=== PATIENT | female | born 1950 | race Caucasian/White ===

== ENCOUNTER 2016-12-28 19:25 | Emergency (ER) | payer MEDICARE, OTHER ==
[2016-12-28] MEDS ORDERED: MOTRIN 600 MG PO STA (19:53)
[2016-12-28] MEDS ORDERED: Sodium Chloride 0.9% 1000 ML 1,000 ML IV STA ×2 (19:55→22:08)
--- NOTE | 2016-12-28 20:00 | ERPHSYRPT ---
- History of Present Illness Time Seen by Provider: 12/28/16 19:53 Source: patient Exam Limitations: no limitations Patient Subjective Stated Complaint: pt states she has had a fever since , 104.6 at home today, denies no cough, trouble urinating Triage Nursing Assessment: pt alert and oriented, answers questions approp. pt transfer from wheelchair to stretcher with assist of 1. slightly unsteady gait noted. respirations nonlabored with lungs cta. skin hot, flushed, and dry. Physician History: The patient is a 66-year-old female complaining of malaise and fever for 3 days. Her temperature at home was been as high as 103-104. She's had some achy fingers at times. She denies cough or sore throat. She did not get her influenza vaccination this year. Her past medical history is significant for hypertension, high cholesterol. Timing/Duration: day(s) (3) Fever Severity: moderate Fever Therapy FISHER DIVING: Acetaminophen Associated Symptoms: muscle aches, weakness, No cough, No nausea/vomiting, No shortness of breath, No sore throat Allergies/Adverse Reactions: Beta-Blockers (Beta-Adrenergic Bloc Allergy (Verified 12/28/16 19:49) Home Medications: Aspirin 81 mg PO DAILY 01/23/16 [History] Cyanocobalamin (Vitamin B-12) [Vitamin B-12] 0 mg PO DAILY 01/23/16 [History] Olmesartan/Hydrochlorothiazide [Benicar Hct 40-12.5 mg Tablet] 0.5 tab PO HS 09/01 [History] PANTOPRAZOLE 40 mg Tablet [Protonix 40MG Tablet] 40 mg PO DAILY 01/23/16 [ History] Sertraline HCl 50 mg [Zoloft 50 mg Tablet] 50 mg PO DAILY 01/23/16 [History] Verapamil HCl [Verapamil ER Pm] 200 mg PO DAILY 01/23/16 [History] Atorvastatin Calcium 10 mg PO HS 12/28/16 [History] Magnesium Oxide 400 mg [Mag-Ox 400] 400 mg PO DAILY 12/28/16 [History] Hx Tetanus, Diphtheria Vaccination/Date Given: Yes Hx Influenza Vaccination/Date Given: No Hx Pneumococcal Vaccination/Date Given: No Immunizations Up to Date: Yes - Review of Systems Constitutional: Fever Eyes: No Symptoms Ears, Nose, & Throat: No Symptoms Respiratory: No Cough, No Dyspnea Cardiac: No Chest Pain, No Edema, No Syncope Abdominal/Gastrointestinal: No Abdominal Pain, No Nausea, No Vomiting, No Diarrhea Genitourinary Symptoms: No Dysuria Musculoskeletal: No Back Pain, No Neck Pain Skin: No Rash Neurological: No Dizziness, No Focal Weakness, No Sensory Changes Psychological: No Symptoms Endocrine: No Symptoms Hematologic/Lymphatic: No Symptoms Immunological/Allergic: No Symptoms All Other Systems: Reviewed and Negative - Past Medical History Pertinent Past Medical History: Yes Cardiac History: Arrhythmia, High Cholesterol, Hypertension Psycho-Social History: Depression - Past Surgical History Past Surgical History: Yes Gastrointestinal: Cholecystectomy, Hernia Repair Female Surgical History: Tubal Ligation Other Surgical History: gastric bypass. heel spur. bilat carpal tunnel. bilat knee replace. Left shoulder - Social History Smoking Status: Never smoker Exposure to second hand smoke: Yes Drug Use: none Patient Lives Alone: No - Nursing Vital Signs Nursing Vital Signs: Initial Vital Signs Temperature 103.9 F 12/28/16 19:38 Pulse Rate 96 H 12/28/16 19:38 Respiratory Rate 20 12/28/16 19:38 Blood Pressure 117/60 12/28/16 19:38 O2 Sat by Pulse Oximetry 91 L 12/28/16 19:38 Pain Scale Pain Intensity 0 - Physical Exam General Appearance: no apparent distress, alert Eye Exam: PERRL/EOMI ENT Exam: pharyngeal erythema, tonsillar exudate Neck Exam: supple, full range of motion, No meningismus Respiratory Exam: normal breath sounds, lungs clear, no respiratory distress Cardiovascular/Chest Exam: normal heart sounds, regular rate/rhythm, No murmur, No edema Gastrointestinal/Abdominal Exam: soft, non tender, no distention Pelvic Exam: not done Rectal Exam: not done Extremity Exam: non-tender, normal range of motion, normal inspection, normal capillary refill Neurologic Exam: alert, oriented x 3, cooperative, 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, normal mood/affect, sensation nml, No motor deficits Skin Exam: normal color, warm, dry, No rash SpO2 Interpretation: normal SpO2: 91 Oxygen Delivery: Room Air - Radiology Exams Chest X-ray Interpretation: Interpreted by me, Negative Ordered Tests: Active Orders 24 hr Category Date Time Status IV Insertion STAT Care 12/28/16 19:53 Active Oxygen-ED Only NASAL CANNULA 2 lpm Care 12/28/16 19:53 Active CHEST 2 VIEWS (PA AND LAT) Stat Exams 12/28/16 19:54 Taken BLOOD CULTURE Stat Lab 12/28/16 20:10 Received BMP Stat Lab 12/28/16 20:00 Completed CBC W DIFF Stat Lab 12/28/16 20:00 Completed CULTURE, THROAT Stat Lab 12/28/16 20:00 Received CULTURE,URINE Stat Lab 12/28/16 23:27 Received Lactic Acid Stat Lab 12/28/16 20:00 Completed STREP SCREEN-BETA A Stat Lab 12/28/16 20:00 Completed UA W/ MICROSCOPIC Stat Lab 12/28/16 23:27 Completed Medication Summary Generic Name Dose Route Start Last Admin Trade Name Freq PRN Reason Stop Dose Admin Ceftriaxone Sodium/Dextrose 1 g in 50 mls @ 100 mls/hr 12/28/16 23:56 Rocephin 1 Gm-D5w 50 Ml Bag IV 12/29/16 00:25 STAT STA Discontinued Medications Generic Name Dose Route Start Last Admin Trade Name Freq PRN Reason Stop Dose Admin Sodium Chloride 1,000 mls @ 999 mls/hr 12/28/16 19:55 12/28/16 20:18 Sodium Chloride 0.9% 1000 Ml IV 12/28/16 20:55 999 mls/hr .Q1H1M STA Administration Sodium Chloride Confirm 12/28/16 20:16 Sodium Chloride 0.9% 1000 Ml Administered 12/28/16 20:17 Dose 1,000 mls @ ud .ROUTE .STK-MED ONE Sodium Chloride Confirm 12/28/16 21:59 Sodium Chloride 0.9% 1000 Ml Administered 12/28/16 22:00 Dose 1,000 mls @ ud .ROUTE .STK-MED ONE Sodium Chloride 1,000 mls @ 999 mls/hr 12/28/16 22:08 12/28/16 22:20 Sodium Chloride 0.9% 1000 Ml IV 12/28/16 23:08 999 mls/hr .Q1H1M STA Administration Ibuprofen 600 mg 12/28/16 19:53 12/28/16 20:17 Motrin 600 Mg PO 12/28/16 19:54 600 mg STAT STA Administration Ibuprofen Confirm 12/28/16 20:16 Motrin 600 Mg Administered 12/28/16 20:17 Dose 600 mg .ROUTE .STK-MED ONE Lab/Rad Data: Laboratory Result Diagrams 12/28/16 20:00 12/28/16 20:00 Laboratory Results 12/28/16 12/28/16 12/28/16 Range/Units 23:27 20:00 20:00 WBC (4.0-10.5) K/mm3 RBC (4.1-5.4) M/mm3 Hgb (12.0-16.0) gm/dl Hct (35-47) % MCV (78-100) fl MCH (26-32) pg MCHC (32-36) g/dl RDW (11.5-14.0) % Plt Count (150-450) K/mm3 MPV (6-9.5) fl Gran % (36.0-66.0) % Lymphocytes % (24.0-44.0) % Monocytes % (0.0-12.0) % Eosinophils % (0.00-5.0) % Basophils % (0.0-0.4) % Basophils # (0-0.4) Sodium (136-145) mEq/L Potassium (3.5-5.1) mEq/L Chloride (98-107) mEq/L Carbon Dioxide (21-32) mEq/L Anion Gap (5-15) MEQ/L BUN (9-20) mg/dL Creatinine (0.55-1.30) mg/dl Estimated GFR ML/MIN Glucose (70-110) MG/DL Lactic Acid 0.8 (0.4-2.0) Calcium (8.5-10.1) mg/dL Ur Collection Type CATH Urine Color DARK YELLOW (YELLOW) Urine Appearance SLIGHTLY CLOUDY (CLEAR) Urine pH 5.0 (5-6) Ur Specific [place] 1.020 (1.005-1.025) Urine Protein TRACE (Negative) Urine Ketones NEGATIVE (NEGATIVE) Urine Blood NEGATIVE (0-5) Faisal/ul Urine Nitrite NEGATIVE (NEGATIVE) Urine Bilirubin SMALL (NEGATIVE) Urine Urobilinogen 1 (0-1) mg/dL Ur Leukocyte Esterase TRACE (NEGATIVE) Urine Microscopic RBC 0-2 (0-2) /HPF Urine Microscopic WBC 2-5 (0-5) /HPF Ur Epithelial Cells MODERATE (FEW) /HPF Urine Bacteria MANY (NEGATIVE) /HPF Urine Mucus MODERATE (NEGATIVE) /HPF Urine Culture Reflexed YES (NO) Urine Glucose NEGATIVE (NEGATIVE) mg/dL Influenza Type A Ag NEGATIVE (NEGATIVE) Influenza Type B Ag NEGATIVE (NEGATIVE) RSV (PCR) NEGATIVE (Negative) Streptococcus Screen (Negative) Specimen Received 12/28/16 2330 12/28/16 12/28/16 12/28/16 Range/Units 20:00 20:00 20:00 WBC 8.7 (4.0-10.5) K/mm3 RBC 4.25 (4.1-5.4) M/mm3 Hgb 12.1 (12.0-16.0) gm/dl Hct 37.6 (35-47) % MCV 88.5 (78-100) fl MCH 28.5 (26-32) pg MCHC 32.2 (32-36) g/dl RDW 13.9 (11.5-14.0) % Plt Count 129 L (150-450) K/mm3 MPV 10.7 H (6-9.5) fl Gran % 75.4 H (36.0-66.0) % Lymphocytes % 13.2 L (24.0-44.0) % Monocytes % 10.5 (0.0-12.0) % Eosinophils % 0.6 (0.00-5.0) % Basophils % 0.3 (0.0-0.4) % Basophils # 0.03 (0-0.4) Sodium 138 (136-145) mEq/L Potassium 3.8 (3.5-5.1) mEq/L Chloride 102 (98-107) mEq/L Carbon Dioxide 28.8 (21-32) mEq/L Anion Gap 11.1 (5-15) MEQ/L BUN 29 H (9-20) mg/dL Creatinine 1.33 H (0.55-1.30) mg/dl Estimated GFR 42 ML/MIN Glucose 108 (70-110) MG/DL Lactic Acid (0.4-2.0) Calcium 9.4 (8.5-10.1) mg/dL Ur Collection Type Urine Color (YELLOW) Urine Appearance (CLEAR) Urine pH (5-6) Ur Specific [place] (1.005-1.025) Urine Protein (Negative) Urine Ketones (NEGATIVE) Urine Blood (0-5) Faisal/ul Urine Nitrite (NEGATIVE) Urine Bilirubin (NEGATIVE) Urine Urobilinogen (0-1) mg/dL Ur Leukocyte Esterase (NEGATIVE) Urine Microscopic RBC (0-2) /HPF Urine Microscopic WBC (0-5) /HPF Ur Epithelial Cells (FEW) /HPF Urine Bacteria (NEGATIVE) /HPF Urine Mucus (NEGATIVE) /HPF Urine Culture Reflexed (NO) Urine Glucose (NEGATIVE) mg/dL Influenza Type A Ag (NEGATIVE) Influenza Type B Ag (NEGATIVE) RSV (PCR) (Negative) Streptococcus Screen NEGATIVE (Negative) Specimen Received - Progress Progress: improved Counseled pt/family regarding: lab results, diagnosis, need for follow-up, rad results - Departure Time of Disposition: 23:59 Departure Disposition: Home Clinical Impression: UTI (urinary tract infection) Condition: Stable Critical Care Time: No Referrals: REECE SINGLETON [Primary Care Provider] - Additional Instructions: You had a fever has been caused by a UTI. You were given Rocephin 1 g and fluids by IV in the ER. Prescriptions: Ciprofloxacin [Cipro 500 MG] 1 tab PO BID #14 tablet
[2016-12-28] MEDS ORDERED: MOTRIN 600 MG ONE (20:16)
[2016-12-28] MEDS ORDERED: Sodium Chloride 0.9% 1000 ML 1,000 ML ONE ×2 (20:16→21:59)
[2016-12-28 20:18] LABS: BASOPHIL % 0.3 % (0.0-0.4); Eosinophil % 0.6 % (0.00-5.0); Granulocytes % 75.4 % (36.0-66.0); Lymphocytes % 13.2 % (24.0-44.0); Mean Cell Volume 88.5 fl (78-100); Mean Corpuscular Hemoglobin 28.5 pg (26-32); Mean Platelet Volume 10.7 fl (6-9.5); Monocytes % 10.5 % (0.0-12.0); Platelet Count 129 K/mm3 (150-450); Red Blood Count 4.25 M/mm3 (4.1-5.4); Red Cell Distribution Width 13.9 % (11.5-14.0); White Blood Count 8.7 K/mm3 (4.0-10.5)
[2016-12-28 20:44] LABS: ANION GAP 11.1 MEQ/L (5-15); Carbon Dioxide 28.8 mEq/L (21-32); Potassium 3.8 mEq/L (3.5-5.1)
[2016-12-28 23:38] LABS: Collection Type CATH; Glucose NEGATIVE (NEGATIVE); Leukocyte Esterase TRACE (NEGATIVE)
[2016-12-28 23:39] LABS: ADD URINE CULTURE? YES (NO); Bacteria MANY /HPF (NEGATIVE); Bilirubin SMALL (NEGATIVE); Blood NEGATIVE Ery/ul (0-5); COMPLETE URINE MICROSCOPIC? YES; Epithelial Cells MODERATE /HPF (FEW); Mucus MODERATE /HPF (NEGATIVE)
[2016-12-28] MEDS ORDERED: ROCEPHIN 1 Gm-D5w 50 ml Bag** 1 G/50 ML IVPB IV STA (23:56)
[2016-12-28] MEDS ORDERED: TYLENOL 325 MG PO STA (23:57)
[2016-12-29] MEDS ORDERED: Rocephin 1000 MG INJ IM ONE (00:33)
[2016-12-29] MEDS ORDERED: Rocephin 1000 MG INJ ONE (00:35)
[2016-12-29] MEDS ORDERED: TYLENOL 325 MG ONE (00:35)
[2016-12-29] MEDS ORDERED: XYLOCAINE 1% HCL 20 ML MDV ONE (00:38)
[2016-12-29 00:50] VITALS: BP 93/54; PULSE 72; O2SAT 93
--- NOTE | 2016-12-29 09:08 | XRAY ---
Indication: Fever. Comparison: January 23, 2016. AP/lateral chest again demonstrates normal heart and lungs with mild bony degenerative changes. No new/acute findings.
== END 2016-12-29 00:50 | disposition home or self-care (01) ==
LOC: ED 19:25
DX: N39.0 Urinary tract infection, site not specified (principal)
CPT/HCPCS: 96372; 99284; 36000; 96360; 96361; 87040; 81000; 36415; 87430; 87070; 85025; 80048; 87086; 87631; 71020; 83605; P9612; J0696; A9270-GY

== ENCOUNTER 2018-01-21 20:32 | Emergency (ER) | payer MEDICARE, OTHER ==
--- NOTE | 2018-01-21 20:47 | ERPHSYRPT ---
- History of Present Illness Time Seen by Provider: 01/21/18 20:45 Source: patient Exam Limitations: clinical condition Patient Subjective Stated Complaint: Fall/Chest pain Triage Nursing Assessment: Patient brought into ED per EMS for fall. Patient states she was walking outside and went down steps and slipped on wet leaves. Patient states she landed face forward hitting left side of face/head. Patient has laceration above eyebrow and purple bruise to underneath left eye. Purple bruise/raised area noted to right knee. Patient complains of constant stabbing pain around left side of chest area. Patient denies losing consciousness. Lungs noted to be clear a/p lois. No edema noted. S1-S2 heart tones audible. Physician History: PATIENT WITH A HISTORY OF HYPERTENSION, SLIPPED ON WET LEAVER FELL TO PAVEMENT STRUCK HER FACE COMPLAINS OF NASAL PAIN, ABRASIONS, LACERATION OVER LEFT EYEBROW AND LEFT RIB PAIN WORSE UPON INSPIRATION AND MOTION OF TORSO. HAS SLIGHT HEADACHE, DENIES LOSS OF CONSCIOUSNESS, NECK OR BACK PAIN, NUMBNESS, TINGLING OR WEAKNESS IN EXTREMITIES. Occurred: just prior to arrival Reason for Fall: slipped Injuries/Pain Location: head, face, chest Loss of Consciousness: no loss of consciousness Quality: sharpness, stabbing (IN LEFT RIBS) Severity of Pain-Max: moderate Modifying Factors: Improves With: cold therapy, movement ( AND INSPIRATION) Associated Symptoms (Fall): headache (FACIAL PAIN) Allergies/Adverse Reactions: Beta-Blockers (Beta-Adrenergic Bloc Allergy (Verified 01/21/18 20:45) Home Medications: Aspirin 81 mg PO DAILY 01/23/16 [History] Cyanocobalamin (Vitamin B-12) [Vitamin B-12] 0 mg PO DAILY 01/23/16 [History] PANTOPRAZOLE 40 mg Tablet [Protonix 40MG Tablet] 40 mg PO DAILY 01/23/16 [ History] Sertraline HCl 50 mg [Zoloft 50 mg Tablet] 100 mg PO DAILY 01/23/16 [History ] Verapamil HCl [Verapamil ER Pm] 200 mg PO DAILY 01/23/16 [History] Atorvastatin Calcium 10 mg PO HS 12/28/16 [History] Losartan Potassium 25 mg PO DAILY 01/21/18 [History] Hx Tetanus, Diphtheria Vaccination/Date Given: Yes Hx Influenza Vaccination/Date Given: No Hx Pneumococcal Vaccination/Date Given: Yes Immunizations Up to Date: Yes - Review of Systems Constitutional: No Fever, No Chills Eyes: Other (LEFT EYEBROW LACERATION) Ears, Nose, & Throat: Other (NASAL PAIN WITH ABRASION) Respiratory: Other (LEFT SIDED CHEST PAIN UPON INSPIRATION) Cardiac: Chest Pain Abdominal/Gastrointestinal: No Symptoms Genitourinary Symptoms: No Symptoms Musculoskeletal: No Symptoms - Past Medical History Pertinent Past Medical History: Yes Cardiac History: Arrhythmia, High Cholesterol, Hypertension Musculoskeletal History: No Pertinent History GI Medical History: No Pertinent History History: No Pertinent History Psycho-Social History: No Pertinent History Female Reproductive Disorders: No Pertinent History - Past Surgical History Past Surgical History: Yes Gastrointestinal: Cholecystectomy, Hernia Repair Female Surgical History: Tubal Ligation Other Surgical History: gastric bypass. heel spur. bilat carpal tunnel. bilat knee replace. Left shoulder - Social History Smoking Status: Never smoker Exposure to second hand smoke: No Drug Use: none Patient Lives Alone: No - Female History Hx Last Menstrual Period: menopausal Hx Now: No - Nursing Vital Signs Nursing Vital Signs: Initial Vital Signs Temperature 99.0 F 01/21/18 20:34 Pulse Rate 70 01/21/18 20:34 Respiratory Rate 18 01/21/18 20:34 Blood Pressure 165/103 01/21/18 20:34 O2 Sat by Pulse Oximetry 97 01/21/18 20:34 Pain Scale Pain Intensity 6 - [place] Coma Score Best Eye Response (Delfino): (4) open spontaneously Best Verbal Response (Delfino): (5) oriented Best Motor Response ([place]): (6) obeys commands [place] Total: 15 - Physical Exam General Appearance: no apparent distress Head Injury: lacerations ( THERE IS A 1.2CM LACERATION OVER LEFT EYEBROW, NO FACIAL CREPITUS), swelling, tenderness Eye Exam: PERRL/EOMI ENT Exam: airway nml, other (NASAL ABRASION, NO NASAL BRIDGE SWELLING , DEVIATION OR CREPITUS) Neck Exam: other (THERE IS NO POST CERVICAL SPINAL TENDERNESS) Respiratory/Chest Exam: chest tenderness (MARKED TENDERNESS OVER LEFT LATERAL RIBS INFERIOR TO AXILLA, 4TH TO 8TH RIBS) Cardiovascular Exam: normal heart sounds Gastrointestinal Exam: soft, normal bowel sounds Peripheral Pulses: carotid (R): 2+, carotid (L): 2+, femoral (R): 2+, femoral (L ): 2+, dorsalis-pedis (R): 2+, dorsalis-pedis (L): 2+ Neurologic Exam: alert, oriented x 3 Skin Exam: normal color SpO2 Interpretation: normal SpO2: 97 Oxygen Delivery: Room Air Procedures - Laceration/Wound Repair Left Face Wound Location: Left (EYEBROW LACERATION 1.2CM LACERATION) Wound Length (cm): 1.2 Wound's Depth, Shape: linear Wound Explored: clean Irrigated: Yes Hibiclens Prep: Yes Anesthesia: local Volume Anesthetic (ccs): 3 Wound Repaired With: sutures Suture Size/Type: 5-0 Number of Sutures: 5 Ordered Tests: Active Orders 24 hr Category Date Time Status CERVICAL SPINE WO CONTRAST [CT] Stat Exams 01/21/18 20:49 Taken CHEST 2 VIEWS (PA AND LAT) Stat Exams 01/21/18 20:50 Taken FACIAL BONES WO CONTRAST [CT] Stat Exams 01/21/18 20:49 Taken HEAD WITHOUT CONTRAST [CT] Stat Exams 01/21/18 20:49 Taken RIBS UNILATERAL Stat Exams 01/21/18 20:52 Taken BMP Stat Lab 01/21/18 21:08 Completed CBC W DIFF Stat Lab 01/21/18 21:08 Completed Medication Summary Generic Name Dose Route Start Last Admin Trade Name Freq PRN Reason Stop Dose Admin Sodium Chloride 1,000 mls @ 50 mls/hr 01/21/18 21:00 01/21/18 21:03 Sodium Chloride 0.9% 1000 Ml IV 02/20/18 20:59 50 mls/hr .Q20H LENIN Administration Discontinued Medications Generic Name Dose Route Start Last Admin Trade Name Freq PRN Reason Stop Dose Admin Morphine Sulfate 2 mg 01/21/18 20:53 01/21/18 20:59 Morphine Sulfate 2 Mg Inj IV 01/21/18 20:54 2 mg STAT ONE Administration Morphine Sulfate Confirm 01/21/18 20:57 Morphine Sulfate 2 Mg Inj Administered 01/21/18 20:58 Dose 2 mg .ROUTE .STK-MED ONE Ondansetron HCl 4 mg 01/21/18 20:53 01/21/18 21:00 Zofran 4 Mg/2 Ml Vial IV 01/21/18 20:54 4 mg STAT ONE Administration Ondansetron HCl Confirm 01/21/18 20:56 Zofran 4 Mg/2 Ml Vial Administered 01/21/18 20:57 Dose 4 mg .ROUTE .STK-MED ONE Lab/Rad Data: Laboratory Result Diagrams 01/21/18 21:08 01/21/18 21:08 Laboratory Results 01/21/18 01/21/18 Range/Units 21:08 21:08 WBC 7.1 (4.0-10.5) K/mm3 RBC 4.50 (4.1-5.4) M/mm3 Hgb 12.9 (12.0-16.0) gm/dl Hct 39.7 (35-47) % MCV 88.2 (78-100) fl MCH 28.7 (26-32) pg MCHC 32.5 (32-36) g/dl RDW 13.9 (11.5-14.0) % Plt Count 200 (150-450) K/mm3 MPV 10.4 H (6-9.5) fl Gran % 46.5 (36.0-66.0) % Eos # (Auto) 0.59 H (0-0.5) Absolute Lymphs (auto) 2.54 (1.0-4.6) Absolute Monos (auto) 0.66 (0.0-1.3) Lymphocytes % 35.6 (24.0-44.0) % Monocytes % 9.2 (0.0-12.0) % Eosinophils % 8.3 H (0.00-5.0) % Basophils % 0.4 (0.0-0.4) % Absolute Granulocytes 3.32 (1.4-6.9) Basophils # 0.03 (0-0.4) Sodium 140 (137-145) mmol/L Potassium 4.1 (3.5-5.1) mmol/L Chloride 107 (98-107) mmol/L Carbon Dioxide 25 (22-30) mmol/L Anion Gap 12.3 (5-15) MEQ/L BUN 26 H (7-17) mg/dL Creatinine 0.85 (0.52-1.04) mg/dL Estimated GFR > 60.0 ML/MIN Glucose 93 (74-106) mg/dL Calcium 10.4 H (8.4-10.2) mg/dL - Progress Progress Note: 01/21/18 21:09 IV NORMAL SALINE 50ML/HR, ZOFRAN 4MG, MORPHINE 2MG IV Counseled pt/family regarding: lab results, diagnosis, need for follow-up, rad results - Departure Time of Disposition: 23:00 Departure Disposition: Home Clinical Impression: FOREHEAD CONTUSION, LEFT EYEBROW LACERATION, LEFT 10TH RIB FRACTURE, CHEST WALL CONTUSION Condition: Stable Critical Care Time: No Referrals: REECE SINGLETON [Primary Care Provider] - Additional Instructions: FOLLOW HEAD INJURY INSTRUCTIONS. HAVE STITCHES REMOVED AT 8 DAYS. APPLY ICE OVER WOUND SWELLING EVERY 4 HOURS, 30 MINUTES FOR 48 HOURS. WATCH FOR SIGNS OF INFECTION, REDNESS, SWELLING OR DRAINAGE. TYLENOL #3 EVERY 6 HOURS NEEDED FOR PAIN. RETURN TO EMERGENCY FOR NAUSEA, EMESIS, PERSISTENT HEADACHE OR LETHARGY. Prescriptions: Codeine Phosphate/APAP #3 [Tylenol #3 Tablet] 1 tab PO Q6H PRN PRN #12 tablet PRN Reason: Pain
[2018-01-21] MEDS ORDERED: MORPHINE SULFATE 2 MG INJ IV ONE (20:53)
[2018-01-21] MEDS ORDERED: Zofran 4 MG/2 ML VIAL IV ONE (20:53)
[2018-01-21] MEDS ORDERED: Zofran 4 MG/2 ML VIAL ONE (20:56)
[2018-01-21] MEDS ORDERED: MORPHINE SULFATE 2 MG INJ ONE (20:57)
[2018-01-21] MEDS ORDERED: Sodium Chloride 0.9% 1000 ML 1,000 ML ONE (20:57)
[2018-01-21] MEDS ORDERED: Sodium Chloride 0.9% 1000 ML 1,000 ML IV SCH (21:00)
[2018-01-21 21:07] LABS: BASOPHIL % 0.4 % (0.0-0.4); Basophil (Absolute #) 0.03 (0-0.4); Eosinophil % 8.3 % (0.00-5.0); Eosinophil (Absolute #) 0.59 (0-0.5); Granulocyte Absolute (ANC) 3.32 (1.4-6.9); Granulocytes % 46.5 % (36.0-66.0); Hematocrit 39.7 % (35-47); Hemoglobin 12.9 gm/dl (12.0-16.0); Lymphocyte (Absolute #) 2.54 (1.0-4.6); Lymphocytes % 35.6 % (24.0-44.0); Mean Cell Volume 88.2 fl (78-100); Mean Corpuscular Hemoglobin 28.7 pg (26-32); Mean Corpuscular Hgb Concent. 32.5 g/dl (32-36); Mean Platelet Volume 10.4 fl (6-9.5); Monocyte (Absolute #) 0.66 (0.0-1.3); Monocytes % 9.2 % (0.0-12.0); Platelet Count 200 K/mm3 (150-450); Red Cell Distribution Width 13.9 % (11.5-14.0); White Blood Count 7.1 K/mm3 (4.0-10.5)
[2018-01-21 21:43] LABS: ANION GAP 12.3 MEQ/L (5-15); BLOOD UREA NITROGEN 26 mg/dL (7-17); CHLORIDE 107 mmol/L (98-107); Calcium 10.4 mg/dL (8.4-10.2); Carbon Dioxide 25 mmol/L (22-30); Creatinine 1 0.85 mg/dL (0.52-1.04); Glucose 93 mg/dL (74-106); Potassium 4.1 mmol/L (3.5-5.1); SODIUM 140 mmol/L (137-145)
[2018-01-21 23:00] VITALS: BP 125/70; PULSE 64; O2SAT 93
[2018-01-21] MEDS ORDERED: Tylenol #3 Tablet PO ONE (23:08)
[2018-01-21] MEDS ORDERED: Tylenol #3 Tablet ONE (23:11)
--- NOTE | 2018-01-22 08:38 | XRAY ---
Indication: Pain following fall. Multiple contiguous axial images obtained through the head without contrast. Comparison: None Normal appearing brain parenchyma, ventricles, and bony calvarium. Minimal mucosal thickening left maxillary sinus. Remaining visualized paranasal sinuses and mastoid air cells are clear. Impression: No acute intracranial abnormalities. Minimal paranasal sinus disease. CTDI 49.89
--- NOTE | 2018-01-22 08:40 | XRAY ---
Indication: Pain following fall. Multiple contiguous axial images obtained through the facial bones. Sagittal and coronal reformatted images obtained. Comparison: None Minimal left maxilla soft tissue swelling. No acute fracture, suspicious bony lesions, or radiopaque foreign body. Orbits including roof, juarez, and floors intact. Minimal mucosal thickening involving the posterior left maxillary sinus. Remaining paranasal sinuses and nasal passages are clear. Minimal nasal septal deviation. Visualized noncontrasted soft tissues unremarkable. Impression: Minimal left base soft tissue swelling. Negative acute fracture. Minimal left maxillary sinus disease. CT DI 59.47
--- NOTE | 2018-01-22 08:42 | XRAY ---
Indication: Pain following fall. Multiple contiguous axial images obtained through the cervical spine. Sagittal and coronal reformatted images obtained. Comparison: None Axial images negative for acute fracture, suspicious bony lesions, or spinal canal stenosis. Mild/moderate C4-T1 degenerative endplate spurring with tiny subcortical cysts and mild degenerative facet arthropathy. Sagittal and coronal reformatted images demonstrates normal alignment with C4-C7 disc space narrowing. No acute compression fracture, subluxation, or jumped facet. Normal appearing craniocervical junction. Visualized noncontrasted soft tissues demonstrates mild scattered carotid calcifications bilaterally. Lung apices clear. Impression: 1. Negative acute fracture/subluxation. 2. Multilevel degenerative changes. CT DI 51.11
--- NOTE | 2018-01-22 08:54 | XRAY ---
Indication: Pain following fall. Comparison: None 2 views of the left ribs demonstrates moderate left AC degenerative arthropathy, moderate multilevel degenerative spondylosis, and upper abdomen suture material/surgical clips. No other bony, articular, or soft tissue abnormalities.
--- NOTE | 2018-01-22 08:54 | XRAY ---
Indication: Pain following fall. Comparison: December 28, 2016. PA/lateral chest again demonstrates normal heart and lungs with bony degenerative changes. New upper abdomen suture material/surgical clips.
== END 2018-01-21 23:18 | disposition home or self-care (01) ==
LOC: ED 20:32
DX: S01.112A Laceration without foreign body of left eyelid and periocular area, initial encounter (principal); S00.83XA Contusion of other part of head, initial encounter; S22.32XA Fracture of one rib, left side, initial encounter for closed fracture; R51 Headache; R07.9 Chest pain, unspecified; S20.212A Contusion of left front wall of thorax, initial encounter; W10.8XXA Fall (on) (from) other stairs and steps, initial encounter; J34.89 Other specified disorders of nose and nasal sinuses; Z79.899 Other long term (current) drug therapy
CPT/HCPCS: 12011; 36415; 70450; 70486; 71046; 71100; 72125; 80048; 85025; 96360; 96361; 96374; 96375; 99284; J2270; J2405; L0172; A9270-GY

== ENCOUNTER 2019-10-25 17:35 | Emergency (ER) | payer MEDICARE, OTHER ==
[2019-10-25] MEDS ORDERED: BABY ASPIRIN 81 MG CHEW PO ONE (18:07)
[2019-10-25] MEDS ORDERED: NITRO-BID 2% UD PACKETS TOP ONE (18:07)
[2019-10-25] MEDS ORDERED: MORPHINE SULFATE 2 MG INJ IV ONE (18:07)
[2019-10-25] MEDS ORDERED: Sodium Chloride 0.9% 1000 ML 1,000 ML IV SCH (18:15)
--- NOTE | 2019-10-25 18:31 | ERPHSYRPT ---
<GEORGES,JULIEN - Last Filed: 10/25/19 18:39> - History of Present Illness Time Seen by Provider: 10/25/19 18:30 Historian: patient Exam Limitations: no limitations Patient Subjective Stated Complaint: "I have chest pain and i almost passed out. the pain has been there for two days. It comes and goes." Triage Nursing Assessment: Pt presented alert et oriented x3 answering questions appropriately. Pt ambulated without complications. Pt reported intermittent chest pain onset two days prior. Pt reported a near syncopal episode prior to coming. Pt reported experiencing cold sweats and nausea without vomiting. Pupils 3mm reactive. Neck supple without JVD. Heart tones irregular/clear. Symmetrical chest expansion. Lungs clear with adequate airflow. radial pulses equal bilateral. Abdomen obese non-tender with bowel sounds present in all quadrants. No noted dependent edema. Oral mucosa pink/moist. Physician History: "I have chest pain and i almost passed out. the pain has been there for two days. It comes and goes." Timing/Duration: yesterday Activities at Onset: activity Quality: tightness Location: substernal Chest Pain Radiation: no radiation Severity of Pain-Max: mild Severity of Pain-Current: mild Modifying Factors: Improves With: nothing Associated Symptoms: shortness of breath Allergies/Adverse Reactions: Beta-Blockers (Beta-Adrenergic Bloc Allergy (Verified 10/25/19 17:56) Home Medications: Aspirin 81 mg PO DAILY 01/23/16 [History] Cyanocobalamin (Vitamin B-12) [Vitamin B-12] 1 tab PO DAILY 01/23/16 [History] PANTOPRAZOLE 40 mg Tablet [Protonix 40MG Tablet] 40 mg PO DAILY 01/23/16 [History] Sertraline HCl 50 mg [Zoloft 50 mg Tablet] 100 mg PO DAILY 01/23/16 [History] Verapamil HCl [Verapamil ER Pm] 200 mg PO DAILY 01/23/16 [History] Atorvastatin Calcium 10 mg PO HS 12/28/16 [History] Losartan Potassium 25 mg PO DAILY 01/21/18 [History] Nitroglycerin 0.4 mg Tablet [Nitrostat 0.4 MG Tablet] 1 tab SL DAILY PRN 10/25/19 [History] Hx Tetanus, Diphtheria Vaccination/Date Given: Yes Hx Influenza Vaccination/Date Given: Yes Hx Pneumococcal Vaccination/Date Given: Yes Travel Risk - International Travel Have you traveled outside of the country in past 3 weeks: No - Coronavirus Screening Are you exhibiting any of the following symptoms?: No Symptoms: Shortness of Breath Close contact with a COVID-19 positive Pt in past 14-21 Days: No - Review of Systems Constitutional: No Fever, No Chills Eyes: No Symptoms Ears, Nose, & Throat: No Symptoms Respiratory: No Cough, No Dyspnea Cardiac: Chest Pain, No Edema, No Syncope Abdominal/Gastrointestinal: No Abdominal Pain, No Nausea, No Vomiting, No Diarrhea Genitourinary Symptoms: No Dysuria Musculoskeletal: No Back Pain, No Neck Pain Skin: No Rash Neurological: No Dizziness, No Focal Weakness, No Sensory Changes Psychological: No Symptoms Endocrine: No Symptoms All Other Systems: Reviewed and Negative - Past Medical History Pertinent Past Medical History: Yes Cardiac History: Arrhythmia, High Cholesterol, Hypertension Musculoskeletal History: No Pertinent History GI Medical History: No Pertinent History History: No Pertinent History Psycho-Social History: No Pertinent History Female Reproductive Disorders: No Pertinent History - Past Surgical History Past Surgical History: Yes Gastrointestinal: Cholecystectomy, Hernia Repair Female Surgical History: Tubal Ligation Other Surgical History: gastric bypass. heel spur. bilat carpal tunnel. bilat knee replace. Left shoulder - Social History Smoking Status: Never smoker Exposure to second hand smoke: No Drug Use: none Patient Lives Alone: No - Physical Exam General Appearance: no apparent distress, alert Eye Exam: PERRL/EOMI, eyes nml inspection Ears, Nose, Throat Exam: normal ENT inspection, moist mucous membranes Neck Exam: normal inspection, non-tender, supple, full range of motion Respiratory Exam: normal breath sounds, lungs clear, No respiratory distress Cardiovascular Exam: regular rate/rhythm, normal heart sounds Gastrointestinal/Abdomen Exam: soft, No tenderness, No mass Back Exam: normal inspection, No CVA tenderness, No vertebral tenderness Extremity Exam: normal inspection, normal range of motion Neurologic Exam: alert, oriented x 3, cooperative, normal mood/affect, sensation nml, No motor deficits Skin Exam: normal color, warm, dry SpO2: 96 - Course Nursing assessment & vital signs reviewed: Yes EKG Interpreted by Me: Sinus Rhythm - Radiology Exams Chest X-ray Interpretation: Reviewed by me - Departure Clinical Impression: Unstable angina Condition: Good Referrals: REECE SINGLETON [Primary Care Provider] - Instructions: Angina (DC) <ANTIONETTE PITTS - Last Filed: 10/25/19 20:03> - History of Present Illness Quality: tightness Location: substernal, central Chest Pain Radiation: abdomen Severity of Pain-Max: moderate Severity of Pain-Current: moderate Modifying Factors: Improves With: nitroglycerin Associated Symptoms: nausea, heartburn, dizziness Prior Chest Pain/Cardiac Workup: cardiac cath, recently seen/treated Nitro Today/Relief: 0.4 mg x 4, provided by ED (nitro paste with relief and now recurring lower chest ) Aspirin Treatment Today: 325 mg x 1, provided by ED - Nursing Vital Signs Nursing Vital Signs: Initial Vital Signs Temperature 98.1 F 10/25/19 17:36 Pulse Rate 78 10/25/19 17:36 Respiratory Rate 18 10/25/19 17:36 Blood Pressure 175/94 10/25/19 17:36 O2 Sat by Pulse Oximetry 96 10/25/19 17:36 Pain Scale Pain Intensity 6 - Course Nursing assessment & vital signs reviewed: Yes EKG Interpreted by Me: Sinus Rhythm, NORMAL AXIS, Non-specific ST Changes, Other (apcs) - Radiology Exams Chest X-ray Interpretation: Reviewed by me, No Pneumonia Ordered Tests: Active Orders 24 hr Category Date Time Status Oxygen-ED Only Nasal Cannula 2 lpm Care 10/25/19 18:07 Active CHEST 1 VIEW (PORTABLE) Stat Exams 10/25/19 18:07 Completed CBC W DIFF Stat Lab 10/25/19 18:26 Completed CMP Stat Lab 10/25/19 18:26 Completed NT PRO BNP Stat Lab 10/25/19 18:26 Completed TROPONIN Q3H Lab 10/25/19 18:26 Completed TROPONIN Q3H Lab 10/25/19 21:15 Ordered TROPONIN Q3H Lab 10/26/19 00:15 Ordered TROPONIN Q3H Lab 10/26/19 03:15 Ordered TROPONIN Q3H Lab 10/26/19 06:15 Ordered Medication Summary Generic Name Dose Route Start Last Admin Trade Name Freq PRN Reason Stop Dose Admin Sodium Chloride 1,000 mls @ 50 mls/hr 10/25/19 18:15 10/25/19 18:38 Sodium Chloride 0.9% 1000 Ml IV 11/24/19 18:14 50 mls/hr .Q20H LENIN Administration Discontinued Medications Generic Name Dose Route Start Last Admin Trade Name Freq PRN Reason Stop Dose Admin Aspirin 81 mg 10/25/19 18:07 10/25/19 18:37 Baby Aspirin 81 Mg Chew PO 10/25/19 18:08 81 mg STAT ONE Administration Enoxaparin Sodium 80 mg 10/25/19 19:57 Enoxaparin Sodium SQ 10/25/19 19:58 1XONLY ONE Hydromorphone HCl 0.5 mg 10/25/19 19:46 10/25/19 19:50 Hydromorphone 1 Mg/Ml Ampule IV 10/25/19 19:47 0.5 mg STAT ONE Administration Hydromorphone HCl Confirm 10/25/19 19:49 Hydromorphone 1 Mg/Ml Ampule Administered 10/25/19 19:50 Dose 1 mg .ROUTE .STK-MED ONE Morphine Sulfate 2 mg 10/25/19 18:07 10/25/19 18:38 Morphine Sulfate 2 Mg Inj IV 10/25/19 18:08 2 mg STAT ONE Administration Morphine Sulfate Confirm 10/25/19 18:35 Morphine Sulfate 2 Mg Inj Administered 10/25/19 18:36 Dose 2 mg .ROUTE .STK-MED ONE Nitroglycerin 1 gm 10/25/19 18:07 10/25/19 18:37 Nitro-Bid 2% Ud Packets TOP 10/25/19 18:08 1 gm STAT ONE Administration Nitroglycerin Confirm 10/25/19 18:35 Nitro-Bid 2% Ud Packets Administered 10/25/19 18:36 Dose 1 gm .ROUTE .STK-MED ONE Ondansetron HCl 4 mg 10/25/19 19:45 10/25/19 19:50 Zofran 4 Mg/2 Ml Vial IV 10/25/19 19:46 4 mg STAT ONE Administration Ondansetron HCl Confirm 10/25/19 19:49 Zofran 4 Mg/2 Ml Vial Administered 10/25/19 19:50 Dose 4 mg .ROUTE .STK-MED ONE Lab/Rad Data: Laboratory Result Diagrams 10/25/19 18:26 10/25/19 18:26 Laboratory Results 10/25/19 10/25/19 10/25/19 Range/Units 18:26 18:26 18:26 WBC 6.7 (4.0-10.5) K/mm3 RBC 4.54 (4.1-5.4) M/mm3 Hgb 12.8 (12.0-16.0) gm/dl Hct 41.3 (35-47) % MCV 91.0 (78-100) fl MCH 28.2 (26-32) pg MCHC 31.0 L (32-36) g/dl RDW 14.2 H (11.5-14.0) % Plt Count 193 (150-450) K/mm3 MPV 10.8 (7.5-11.0) fl Gran % 58.5 (36.0-66.0) % Eos # (Auto) 0.44 (0-0.5) Absolute Lymphs (auto) 1.79 (1.0-4.6) Absolute Monos (auto) 0.52 (0.0-1.3) Lymphocytes % 26.8 (24.0-44.0) % Monocytes % 7.8 (0.0-12.0) % Eosinophils % 6.6 H (0.00-5.0) % Basophils % 0.3 (0.0-0.4) % Absolute Granulocytes 3.92 (1.4-6.9) Basophils # 0.02 (0-0.4) Sodium 141 (137-145) mmol/L Potassium 4.1 (3.5-5.1) mmol/L Chloride 108 H (98-107) mmol/L Carbon Dioxide 27 (22-30) mmol/L Anion Gap 10.2 (5-15) MEQ/L BUN 27 H (7-17) mg/dL Creatinine 1.02 (0.52-1.04) mg/dL Estimated GFR 56.9 ML/MIN Glucose 80 (74-106) mg/dL Calcium 10.1 (8.4-10.2) mg/dL Total Bilirubin 0.50 (0.2-1.3) mg/dL AST 23 (14-36) U/L ALT 13 (0-35) U/L Alkaline Phosphatase 76 (38-126) U/L Troponin I < 0.012 (0.000-0.034) ng/mL NT-Pro-B Natriuret Pep 149 (0-900) pg/mL Serum Total Protein 7.4 (6.3-8.2) g/dL Albumin 4.1 (3.5-5.0) g/dL - Progress Progress: re-examined Air Movement: good Progress Note: 10/25/19 18:49 pt received in handoff at change of shift from Dr. Millan after discussion of pending labs and current Hx and introduction to pt. Her CP has now resolved. 10/25/19 19:24 now lower chest / epigastrium but less left CP 10/25/19 19:[address] 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 Blood Culture(s) Obtained: No Antibiotics given: No Counseled pt/family regarding: lab results, diagnosis, need for follow-up, rad results - Departure Departure Disposition: Transfer Critical Care Time: Yes Critical Care Time(excluding separately billable procedures): Critical 30-74 mins (unstable angina Tx nitro and requiring intensive monitoring and cardiology transfer)
[2019-10-25 18:32] LABS: Absolute Neutrophil Ct (ANC) 3.92 (1.4-6.9); BASOPHIL % 0.3 % (0.0-0.4); Basophil (Absolute #) 0.02 (0-0.4); Eosinophil % 6.6 % (0.00-5.0); Eosinophil (Absolute #) 0.44 (0-0.5); Hematocrit 41.3 % (35-47); Hemoglobin 12.8 gm/dl (12.0-16.0); Lymphocyte (Absolute #) 1.79 (1.0-4.6); Lymphocytes % 26.8 % (24.0-44.0); Mean Corpuscular Hemoglobin 28.2 pg (26-32); Mean Platelet Volume 10.8 fl (7.5-11.0); Monocyte (Absolute #) 0.52 (0.0-1.3); Monocytes % 7.8 % (0.0-12.0); Neutrophil % 58.5 % (36.0-66.0); Platelet Count 193 K/mm3 (150-450); Red Blood Count 4.54 M/mm3 (4.1-5.4); Red Cell Distribution Width 14.2 % (11.5-14.0); White Blood Count 6.7 K/mm3 (4.0-10.5)
[2019-10-25] MEDS ORDERED: Sodium Chloride 0.9% 1000 ML 1,000 ML ONE (18:35)
[2019-10-25] MEDS ORDERED: NITRO-BID 2% UD PACKETS ONE (18:35)
[2019-10-25] MEDS ORDERED: MORPHINE SULFATE 2 MG INJ ONE (18:35)
[2019-10-25 18:54] LABS: ALBUMIN 4.1 g/dL (3.5-5.0); ANION GAP 10.2 MEQ/L (5-15); BILIRUBIN,TOTAL 0.5 mg/dL (0.2-1.3); Calcium 10.1 mg/dL (8.4-10.2); Creatinine 1 1.02 mg/dL (0.52-1.04); Potassium 4.1 mmol/L (3.5-5.1); Total Protein 7.4 g/dL (6.3-8.2)
[2019-10-25] MEDS ORDERED: Zofran 4 MG/2 ML VIAL IV ONE (19:45)
[2019-10-25] MEDS ORDERED: Hydromorphone 1 mg/ml Ampule IV ONE (19:46)
[2019-10-25] MEDS ORDERED: Zofran 4 MG/2 ML VIAL ONE (19:49)
[2019-10-25] MEDS ORDERED: Hydromorphone 1 mg/ml Ampule ONE (19:49)
--- NOTE | 2019-10-25 19:50 | XRAY ---
Indication: Chest pain 2 days. Comparison: January 21, 2018. Portable apical lordotic chest remains clear again with incidental chronic right hemidiaphragm elevation. Heart is not enlarged for AP portable technique. Bony thorax intact again with mild degenerative changes. Impression: Nonacute chest with chronic features.
[2019-10-25] MEDS ORDERED: ENOXAPARIN SODIUM SQ ONE ×2 (19:57→20:05)
[2019-10-25 21:15] VITALS: BP 143/68
[2019-10-25 21:50] VITALS: PULSE 63; O2SAT 98
== END 2019-10-25 21:50 | disposition short-term general hospital (02) ==
LOC: ED 17:35
DX: I20.0 Unstable angina (principal)
CPT/HCPCS: 36000; 36415; 71045; 80053; 83880; 84484; 85025; 96360; 96361; 96372; 96374; 96375; 96376; 99285; 99291; J1170; J1650; J2270; J2405; A9270-GY

== ENCOUNTER 2021-12-06 07:12 | Day surgery (SDC) | payer MEDICARE, OTHER ==
[2021-12-06] MEDS ORDERED: NON-FORMULARY ITEM OP ONE (07:30)
[2021-12-06] MEDS ORDERED: BETADINE 5% OPHTHALMIC 30 ML OP ONE (07:30)
[2021-12-06] MEDS ORDERED: TETRACAINE 0.5% STERI-UNIT SOL OP ONE ×2 (07:30)
[2021-12-06] MEDS ORDERED: Ak-Dilate OPHTHALMIC*** 1.065 ML, Cyclogyl 1% OPHTH SOL 1.065 ML, GATIFLOXACIN 0.5% OPH... OP ONE ×4 (07:30)
[2021-12-06] MEDS ORDERED: Lactated Ringers 1,000 ML IV SCH (07:30)
[2021-12-06] MEDS ORDERED: cefUROXime sodium 0.005 GM in Sodium Chloride Flush 30 ML*** 0.5 ML IJ ONE (07:30)
[2021-12-06] MEDS ORDERED: Lactated Ringers 1,000 ML IV ONE (07:50)
[2021-12-06 09:16] LABS: PROTIME 10.6 SECONDS (9.4-12.5)
[2021-12-06] MEDS ORDERED: DIPRIVAN 200 MG/20 ML IV ONE ×2 (10:35→10:44)
[2021-12-06] MEDS ORDERED: Zofran 4 MG/2 ML VIAL IV PRN (11:00)
[2021-12-06] MEDS ORDERED: ACETAZOLAMIDE 250 MG TABLET PO ONE (11:00)
[2021-12-06 11:15] VITALS: O2SAT 95
[2021-12-06 11:20] VITALS: BP 145/92; PULSE 55
[2021-12-06] MEDS ORDERED: LIDOCAINE HCL 1% 50 MG/5 ML VL PF IJ ONE (14:57)
[2021-12-06] MEDS ORDERED: Epinephrine Preservative Free 1 MG/ML IJ ONE (14:57)
== END 2021-12-06 11:30 | disposition home or self-care (01) ==
LOC: SDC 07:12
PROVIDERS: ATTEND Ophthalmology
DX: H25.812 Combined forms of age-related cataract, left eye (principal); I10 Essential (primary) hypertension; Z79.01 Long term (current) use of anticoagulants
CPT/HCPCS: 36415; 85610; 93005; 99100; C1780; J0171; J2001; J2704; A9270-GY

== ENCOUNTER 2022-01-03 06:55 | Day surgery (SDC) | payer MEDICARE, OTHER ==
[2022-01-03] MEDS ORDERED: TETRACAINE 0.5% STERI-UNIT SOL OP ONE ×2 (07:00)
[2022-01-03] MEDS ORDERED: Lactated Ringers 1,000 ML IV SCH (07:00)
[2022-01-03] MEDS ORDERED: cefUROXime sodium 0.005 GM in Sodium Chloride Flush 30 ML*** 0.5 ML IJ ONE (07:00)
[2022-01-03] MEDS ORDERED: Ak-Dilate OPHTHALMIC*** 1.065 ML, Cyclogyl 1% OPHTH SOL 1.065 ML, GATIFLOXACIN 0.5% OPH... OP ONE ×4 (07:00)
[2022-01-03] MEDS ORDERED: NON-FORMULARY ITEM OP ONE (07:00)
[2022-01-03] MEDS ORDERED: BETADINE 5% OPHTHALMIC 30 ML OP ONE (07:00)
[2022-01-03] MEDS ORDERED: Lactated Ringers 1,000 ML IV ONE (07:27)
[2022-01-03] MEDS ORDERED: LIDOCAINE HCL 1% 50 MG/5 ML VL PF IJ ONE (09:00)
[2022-01-03] MEDS ORDERED: ACETAZOLAMIDE 250 MG TABLET PO ONE (09:00)
[2022-01-03] MEDS ORDERED: Zofran 4 MG/2 ML VIAL IV PRN (09:00)
[2022-01-03] MEDS ORDERED: Epinephrine Preservative Free 1 MG/ML IJ ONE (09:00)
[2022-01-03] MEDS ORDERED: Xylocaine-Mpf 2% 5 Ml Vial ONE (09:44)
[2022-01-03] MEDS ORDERED: DIPRIVAN 200 MG/20 ML IV ONE (09:44)
[2022-01-03] MEDS ORDERED: SUBLIMAZE 100 MCG/2 ML ONE (09:45)
[2022-01-03] MEDS ORDERED: Versed 2 MG/2 ML Injection ONE (09:45)
[2022-01-03 10:34] VITALS: BP 139/68; PULSE 61; O2SAT 97
== END 2022-01-03 10:45 | disposition home or self-care (01) ==
LOC: SDC 06:55
PROVIDERS: ATTEND Ophthalmology
DX: H25.811 Combined forms of age-related cataract, right eye (principal)
CPT/HCPCS: 99100; C1780; J0171; J2001; J2250; J2704; J3010; A9270-GY

== ENCOUNTER 2025-01-21 17:36 | Inpatient (IN) | payer MEDICARE, OTHER ==
--- NOTE | 2025-01-21 17:55 | ERPHSYRPT ---
- History of Present Illness Physician History: Abnormal lab studies, patient was sent by her primary care doctor for evaluation as her labs are abnormal, she states that her calcium was very high, she has not had any kind of symptoms she was scheduled for a follow-up in clinic and wanted to have labs drawn before she got there, she denied having any muscle aches or muscle cramping, she is short of breath but she is always chronically short of breath, she is able to ambulate but slowly, PMH : CKD, HTN, CHF Allergies/Adverse Reactions: Beta-Blockers (Beta-Adrenergic Bloc Allergy (Verified 01/21/25 17:47) Home Medications: Cyanocobalamin (Vitamin B-12) [Vitamin B-12] 5,000 mg PO DAILY 01/23/16 [History] PANTOPRAZOLE 40 mg Tablet [Protonix 40MG Tablet] 40 mg PO DAILY 01/23/16 [History] Sertraline HCl 50 mg [Zoloft 50 mg Tablet] 100 mg PO DAILY 01/23/16 [History] Verapamil HCl [Verapamil ER Pm] 240 mg PO DAILY 01/23/16 [History] Losartan Potassium 100 mg PO DAILY 01/21/18 [History] Isosorbide Mononitrate 60 mg [Imdur 60MG] 60 mg PO DAILY 11/22/21 [History] Acetaminophen [Tylenol Arthritis] 2 tab PO DAILY 01/21/25 [History] Apixaban [Eliquis] 5 mg PO BID 01/21/25 [History] Nitroglycerin 1 tablet PO Q5MIN PRN MR X 3 PRN 01/21/25 [History] Spironolactone 25 mg [Aldactone 25 MG] 25 mg PO DAILY 01/21/25 [History] Hx Tetanus, Diphtheria Vaccination/Date Given: Yes Hx Influenza Vaccination/Date Given: Yes Hx Pneumococcal Vaccination/Date Given: Yes Travel Risk - Emerging Infectious Disease Are you exhibiting symptoms associated with any current EIDs: No - Past Medical History Neurological History: Stroke Cardiac History: Angina, Congestive Heart Failure, Hypertension, Other Endocrine Medical History: Other Other Medical History: ANXIETY - Past Surgical History Past Surgical History: Yes Neuro Surgical History: No Pertinent History Cardiac: Other Respiratory: No Pertinent History Gastrointestinal: Cholecystectomy, Hernia Repair Genitourinary: No Pertinent History Musculoskeletal: Other Female Surgical History: Section, Tubal Ligation, Other Other Surgical History: gastric bypass. heel spur. bilat carpal tunnel. bilat knee replace. Left shoulder Significant Family History: no pertinent family hx - Social History Smoking Status: Never smoker Exposure to second hand smoke: No Drug Use: none - Social Determinants of Health Will the patient participate in the screening: Yes Do you worry about a steady place to live?: No In the past 12 months,have you had to go without utilities?: No Transportation Issues: No Has anyone in your support network made you feel unsafe?: No Have you or anyone in your house had to go w/o enough food: No - Nursing Vital Signs Nursing Vital Signs: Initial Vital Signs Temperature 98 F 01/21/25 17:36 Pulse Rate 89 01/21/25 17:36 Respiratory Rate 14 01/21/25 17:36 Blood Pressure 137/72 01/21/25 17:36 O2 Sat by Pulse Oximetry 98 01/21/25 17:36 Pain Scale Pain Intensity 0 - Physical Exam General Appearance: no apparent distress, alert, obese Eye Exam: PERRL/EOMI, eyes nml inspection Ears, Nose, Throat Exam: normal ENT inspection, TMs normal, pharynx normal, moist mucous membranes Neck Exam: normal inspection, non-tender, supple, full range of motion Respiratory Exam: normal breath sounds, lungs clear, No respiratory distress Cardiovascular Exam: regular rate/rhythm, normal heart sounds, normal peripheral pulses Gastrointestinal/Abdomen Exam: soft, normal bowel sounds, No tenderness, No mass Back Exam: normal inspection, normal range of motion, No CVA tenderness, No vertebral tenderness Extremity Exam: normal inspection, normal range of motion, pelvis stable, limited range of motion (right wrist) Neurologic Exam: alert, oriented x 3, cooperative, normal mood/affect, nml cerebellar function, nml station & gait, sensation nml, No motor deficits Skin Exam: normal color, warm, dry, No rash Lymphatic Exam: No adenopathy Comments: 01/21/25 17:54 Normal muscle strength, no tetany, no cramping Ordered Tests: Active Orders 24 hr Category Date Time Status IV Insertion STAT Care 01/21/25 17:50 Active CHEST 1 VIEW (PORTABLE) Stat Exams 01/21/25 17:51 Taken CBC W DIFF Stat Lab 01/21/25 17:50 Completed CMP Stat Lab 01/21/25 17:50 Completed MAGNESIUM Stat Lab 01/21/25 17:50 Completed Transfer Order Routine Transfer 01/21/25 Ordered Lab/Rad Data: Laboratory Result Diagrams 01/21/25 17:50 01/21/25 17:50 Laboratory Results 01/21/25 01/21/25 Range/Units 17:50 17:50 WBC 7.5 (3.98-10.04) x10^3/uL RBC 4.76 (3.93-5.22) x10^6/uL Hgb 13.3 (11.2-15.7) g/dL Hct 42.5 (34.1-44.9) % MCV 89.3 (79.4-94.8) fL MCH 27.9 (25.6-32.2) pg MCHC 31.3 L (32.2-35.5) g/dL RDW 14.6 H (11.7-14.4) % Plt Count 220 (182-369) x10^3/uL MPV 10.5 (9.4-12.3) fL Gran % 61.4 (34.0-71.1) % Immature Gran % (Auto) 0.4 (0.001-0.429) % Nucleat RBC Rel Count 0.0 (0.00-0.2) % Eos # (Auto) 0.21 (0.04-0.36) x10^3/uL Immature Gran # (Auto) 0.03 (0.001-0.031) x10^3u/L Absolute Lymphs (auto) 2.00 (1.18-3.74) x10^3/uL Absolute Monos (auto) 0.59 (0.24-0.86) x10^3/uL Absolute Nucleated RBC 0.00 (0.00-0.012) x10^3u/L Lymphocytes % 26.8 (19.3-51.7) % Monocytes % 7.9 (4.7-12.5) % Eosinophils % 2.8 (0.7-5.8) % Basophils % 0.7 (0.1-1.2) % Absolute Granulocytes 4.57 (1.56-6.13) x10^3/uL Basophils # 0.05 (0.01-0.08) x10^3/uL Sodium 138 (135-145) mmol/L Potassium 4.0 (3.5-5.1) mmol/L Chloride 105 (98-107) mmol/L Carbon Dioxide 27 (22-30) mmol/L Anion Gap 10.1 (5-15) MEQ/L BUN 23 H (7-17) mg/dL Creatinine 1.15 H (0.52-1.04) mg/dL Estimated GFR 49.7 ML/MIN Glucose 105 (74-106) mg/dL Calcium 13.8 H* (8.4-10.2) mg/dL Magnesium 1.8 (1.6-2.3) mg/dL Total Bilirubin 0.50 (0.2-1.3) mg/dL AST 23 (14-36) U/L ALT 13 (0-35) U/L Alkaline Phosphatase 70 (38-126) U/L Serum Total Protein 7.0 (6.3-8.2) g/dL Albumin 4.0 (3.5-5.0) g/dL - Progress Progress: unchanged Progress Note: 01/21/25 19:13 Discussed lab results, consult to hospitalist, admit - Departure Departure Disposition: Observation Clinical Impression: Hypercalcemia Condition: Stable Critical Care Time: No Referrals: REECE SINGLETON [Primary Care Provider, [facility]] - Follow up/PCP as directed
[2025-01-21 18:09] LABS: BASOPHIL % 0.7 % (0.1-1.2); Basophil (Absolute #) 0.05 x10^3/uL (0.01-0.08); Eosinophil (Absolute #) 0.21 x10^3/uL (0.04-0.36); Hematocrit 42.5 % (34.1-44.9); Hemoglobin 13.3 g/dL (11.2-15.7); IMMATURE GRAN # 0.03 x10^3u/L (0.001-0.031); IMMATURE GRAN % 0.4 % (0.001-0.429); Lymphocyte (Absolute #) 2.00 x10^3/uL (1.18-3.74); Mean Corpuscular Hemoglobin 27.9 pg (25.6-32.2); Mean Corpuscular Hgb Concent. 31.3 g/dL (32.2-35.5); Monocyte (Absolute #) 0.59 x10^3/uL (0.24-0.86); NUCLEATED RBC # 0.00 x10^3u/L (0.00-0.012); NUCLEATED RBC % 0.0 % (0.00-0.2); Platelet Count 220 x10^3/uL (182-369); Red Blood Count 4.76 x10^6/uL (3.93-5.22); White Blood Count 7.5 x10^3/uL (3.98-10.04)
[2025-01-21 18:24] LABS: Carbon Dioxide 27.0 mmol/L (22-30); Creatinine 1 1.15 mg/dL (0.52-1.04); EST GLOMERULAR FILTRATION RATE 49.7 ML/MIN; Glucose 105.0 mg/dL (74-106); Potassium 4.0 mmol/L (3.5-5.1); SGOT/AST 23.0 U/L (14-36); SGPT/ALT 13.0 U/L (0-35); Total Protein 7.0 g/dL (6.3-8.2)
[2025-01-21 18:32] LABS: Calcium 13.8 mg/dL (8.4-10.2)
[2025-01-21] MEDS ORDERED: Nitrostat 0.4 MG Tablet SL PRN (20:11)
[2025-01-21] MEDS ORDERED: Zofran 4 MG/2 ML VIAL IV PRN (20:12)
--- NOTE | 2025-01-21 20:27 | PCM.HP ---
History of Present Illness - Chief Complaint Chief Complaint: hypercalcemia Date: 01/21/25 History of Present Illness: is a 74 year old female with a history of HTN, CHF, CKD, and prior gastric bypass (in 2016) who presented to the ED as a referral from her PCP for bnormal lab studies, specifically hypercalcemia. She has not had any kind of symptoms and denies muscle spasms or cramps. The patient states that she recently did have an elevated calcium once. She previously had consumed a significant amount of dairy but has cut out ice cream and cut back on cheese (at this time she has approximately 1 serving of cheese and one glass of milk daily). She also had been on a vitamin D supplement in the past but stopped taking that. She says that she has had about 20 pounds of unexpected weight loss over the last 5 months. She denies hematemesis, melena, rectal bleeding, worsening cough, or hemoptysis. She reports chronic dyspnea which is unchanged. - Review of Systems Constitutional: Weight Loss, No Fever, No Chills, No Fatigue, No Lethargy, No Malaise, No Night Sweats, No Weakness Eyes: No Symptoms Ears, Nose, & Throat: No Symptoms Respiratory: Short Of Breath, No Cough, No Orthopnea, No Stridor, No Wheezing Cardiac: No Symptoms Abdominal/Gastrointestinal: No Symptoms Genitourinary Symptoms: No Symptoms Musculoskeletal: No Symptoms Skin: No Symptoms Neurological: No Symptoms Psychological: No Symptoms Endocrine: No Symptoms Hematologic/Lymphatic: No Symptoms Immunological/Allergic: No Symptoms All Other Systems: Reviewed and Negative Medications & Allergies Home Medications: Home Medication List Cyanocobalamin (Vitamin B-12) [Vitamin B-12] 5,000 mg PO DAILY 01/23/16 [History Confirmed 01/21/25] PANTOPRAZOLE 40 mg Tablet [Protonix 40MG Tablet] 40 mg PO DAILY 01/23/16 [History Confirmed 01/21/25] Sertraline HCl 50 mg [Zoloft 50 mg Tablet] 100 mg PO DAILY 01/23/16 [History Confirmed 01/21/25] Verapamil HCl [Verapamil ER Pm] 240 mg PO DAILY 01/23/16 [History Confirmed 01/21/25] Losartan Potassium 100 mg PO DAILY 01/21/18 [History Confirmed 01/21/25] Isosorbide Mononitrate 60 mg [Imdur 60MG] 60 mg PO DAILY 11/22/21 [History Confirmed 01/21/25] Acetaminophen [Tylenol Arthritis] 2 tab PO DAILY 01/21/25 [History Confirmed 01/21/25] Apixaban [Eliquis] 5 mg PO BID 01/21/25 [History Confirmed 01/21/25] Nitroglycerin 1 tablet PO Q5MIN PRN MR X 3 PRN 01/21/25 [History Confirmed 01/21/25] Spironolactone 25 mg [Aldactone 25 MG] 25 mg PO DAILY 01/21/25 [History Confirmed 01/21/25] Allergies/Adverse Reactions: Allergies Allergy/AdvReac Type Severity Reaction Status Date / Time Beta-Blockers Allergy Verified 01/21/25 17:47 (Beta-Adrenergic Bloc - Past Medical History Past Medical History: Yes Neurological History: Stroke ENT History: Cataracts Cardiac History: Angina, Congestive Heart Failure, Hypertension, Other Respiratory History: No Pertinent History Endocrine Medical History: Other Musculoskelatal History: Osteoarthritis, Osteoporosis GI Medical History: No Pertinent History History: No Pertinent History Pyscho-Social History: Anxiety Reproductive Disorders: No Pertinent History Comment: ANXIETY - Past Surgical History Past Surgical History: Yes Neuro Surgical History: No Pertinent History Cardiac History: Other Respiratory Surgery: No Pertinent History GI Surgical History: Cholecystectomy, Hernia Repair Genitourinary Surgical Hx: No Pertinent History Musculskeletal Surgical Hx: Other Female Surgical History: Section, Tubal Ligation, Other Other Surgical History: gastric bypass. heel spur. bilat carpal tunnel. bilat knee replace. Left shoulder Significant Family History: no pertinent family hx - Social History Smoking Status: Never smoker Exposure to second hand smoke: No Alcohol: None Drug Use: none - Social Determinants of Health Will the patient participate in the screening: Yes Do you worry about a steady place to live?: No Do you have any problems with any of the following?: No known problems In the past 12 months,have you had to go without utilities?: No Have you or anyone in your house had to go without enough: No Transportation Issues: No Has anyone in your support network made you feel unsafe?: No Does the patient want assistance with any of the above?: No - Physical Exam Vital Signs: Vital Signs - 24 hr Temp Pulse Resp BP BP Pulse Ox 01/21/25 19:00 89 134/71 94 L 01/21/25 18:30 121/79 93 L 01/21/25 18:00 86 14 119/61 92 L 01/21/25 17:36 98 F 89 14 137/72 98 General Appearance: no apparent distress, alert, No anxiety, No lethargy, No cachetic Neurologic Exam: alert, oriented x 3, cooperative, 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, normal mood/affect, nml cerebellar function, sensation nml, No motor deficits, No sensory deficit Eye Exam: PERRL/EOMI, eyes nml inspection, No scleral icterus, No pale conjunctivae, No photophobia Ears, Nose, Throat Exam: normal ENT inspection Neck Exam: normal inspection, non-tender, supple, full range of motion, No meningismus Respiratory Exam: normal breath sounds, lungs clear, airway intact, No chest te nderness, No respiratory distress Cardiovascular Exam: regular rate/rhythm, normal heart sounds, No murmur, No friction rub, No gallop Gastrointestinal/Abdomen Exam: soft, normal bowel sounds, No tenderness, No distention, No mass, No guarding Back Exam: normal range of motion Extremity Exam: normal inspection, normal range of motion, No pedal edema, No swelling Skin Exam: normal color, No rash, No petechiae, No jaundice, No abrasion, No cyanosis Results - Labs Lab/Micro Results: Lab Results-Last 24 Hours 01/21/25 01/21/25 Range/Units 17:50 17:50 WBC 7.5 (3.98-10.04) x10^3/uL RBC 4.76 (3.93-5.22) x10^6/uL Hgb 13.3 (11.2-15.7) g/dL Hct 42.5 (34.1-44.9) % MCV 89.3 (79.4-94.8) fL MCH 27.9 (25.6-32.2) pg MCHC 31.3 L (32.2-35.5) g/dL RDW 14.6 H (11.7-14.4) % Plt Count 220 (182-369) x10^3/uL MPV 10.5 (9.4-12.3) fL Gran % 61.4 (34.0-71.1) % Immature Gran % (Auto) 0.4 (0.001-0.429) % Nucleat RBC Rel Count 0.0 (0.00-0.2) % Eos # (Auto) 0.21 (0.04-0.36) x10^3/uL Immature Gran # (Auto) 0.03 (0.001-0.031) x10^3u/L Absolute Lymphs (auto) 2.00 (1.18-3.74) x10^3/uL Absolute Monos (auto) 0.59 (0.24-0.86) x10^3/uL Absolute Nucleated RBC 0.00 (0.00-0.012) x10^3u/L Lymphocytes % 26.8 (19.3-51.7) % Monocytes % 7.9 (4.7-12.5) % Eosinophils % 2.8 (0.7-5.8) % Basophils % 0.7 (0.1-1.2) % Absolute Granulocytes 4.57 (1.56-6.13) x10^3/uL Basophils # 0.05 (0.01-0.08) x10^3/uL Sodium 138 (135-145) mmol/L Potassium 4.0 (3.5-5.1) mmol/L Chloride 105 (98-107) mmol/L Carbon Dioxide 27 (22-30) mmol/L Anion Gap 10.1 (5-15) MEQ/L BUN 23 H (7-17) mg/dL Creatinine 1.15 H (0.52-1.04) mg/dL Estimated GFR 49.7 ML/MIN Glucose 105 (74-106) mg/dL Calcium 13.8 H* (8.4-10.2) mg/dL Magnesium 1.8 (1.6-2.3) mg/dL Total Bilirubin 0.50 (0.2-1.3) mg/dL AST 23 (14-36) U/L ALT 13 (0-35) U/L Alkaline Phosphatase 70 (38-126) U/L Serum Total Protein 7.0 (6.3-8.2) g/dL Albumin 4.0 (3.5-5.0) g/dL - Radiology Impressions Radiology Exams & Impressions: Radiology Procedures Category Date Time Status CHEST 1 VIEW (PORTABLE) Stat Exams 01/21/25 17:51 Taken Assessment/Plan (1) Hypercalcemia Current Visit: Yes Status: Acute Assessment & Plan: Recurrent finding. 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 Will check PTH, TSH, vitamin D level. Will give gentle hydration. Monitor on telemetry. In morning if creatinine is stable, can order and obtain CT chest/albumin/pelvis with contrast to assess for occult malignancy (CXR read is pending). Patient reports 20 pounds unintentional weight loss. Can request nephrology consultation in the morning when available. Code(s): E83.52 - HYPERCALCEMIA (2) CKD (chronic kidney disease) Current Visit: Yes Status: Acute Assessment & Plan: Monitor renal function. Code(s): N18.9 - CHRONIC KIDNEY DISEASE, UNSPECIFIED (3) HTN (hypertension) Current Visit: No Status: Chronic Assessment & Plan: Follow BP on home regimen. Code(s): I10 - ESSENTIAL (PRIMARY) HYPERTENSION (4) CHF (congestive heart failure) Current Visit: No Status: Acute Assessment & Plan: Monitor volume status. Gentle IV fluids. Code(s): I50.9 - HEART FAILURE, UNSPECIFIED Telemedicine Encounter - Telemedicine Encounter Telemedicine Encounter: "The entirety of this encounter was performed via Telemedicine" This visit was performed using real-time audio and video connection between my location and thepatients locationwith the assistance of a surrogateat the patients location. Written or verbal consent was obtained from the patient/guardian to perform this visit [facility] technology. Any patient questions regarding the telemedicine interaction were answered. Please note that this admission required 46 minutes to complete.
[2025-01-21] MEDS ORDERED: TYLENOL EXTRA STRENGTH 500 MG PO PRN (20:32)
[2025-01-21] MEDS: ELIQUIS 2.5 MG TABLET PO SCH (21:34)
[2025-01-21] MEDS ORDERED: NON-FORMULARY ITEM (Apixaban [Eliquis] 5 MG Tablet) PO SCH (22:00)
[2025-01-22 05:26] LABS: BASOPHIL % 0.4 % (0.1-1.2); Basophil (Absolute #) 0.03 x10^3/uL (0.01-0.08); Eosinophil (Absolute #) 0.28 x10^3/uL (0.04-0.36); Hematocrit 41.1 % (34.1-44.9); Hemoglobin 12.5 g/dL (11.2-15.7); IMMATURE GRAN # 0.03 x10^3u/L (0.001-0.031); IMMATURE GRAN % 0.4 % (0.001-0.429); Lymphocyte (Absolute #) 1.65 x10^3/uL (1.18-3.74); Mean Corpuscular Hemoglobin 27.4 pg (25.6-32.2); Mean Corpuscular Hgb Concent. 30.4 g/dL (32.2-35.5); Monocyte (Absolute #) 0.41 x10^3/uL (0.24-0.86); NUCLEATED RBC # 0.00 x10^3u/L (0.00-0.012); NUCLEATED RBC % 0.0 % (0.00-0.2); Platelet Count 185 x10^3/uL (182-369); Red Blood Count 4.57 x10^6/uL (3.93-5.22); White Blood Count 6.8 x10^3/uL (3.98-10.04)
[2025-01-22 07:03] LABS: Carbon Dioxide 25.0 mmol/L (22-30); Creatinine 1 1.03 mg/dL (0.52-1.04); EST GLOMERULAR FILTRATION RATE 56.7 ML/MIN; Glucose 90.0 mg/dL (74-106); Potassium 4.0 mmol/L (3.5-5.1); SGOT/AST 19.0 U/L (14-36); SGPT/ALT 10.0 U/L (0-35); Total Protein 6.0 g/dL (6.3-8.2)
[2025-01-22 07:08] LABS: Calcium 12.9 mg/dL (8.4-10.2)
--- NOTE | 2025-01-22 08:52 | XRAY ---
Indication: Short of breath. Comparison: October 01, 2024 Portable chest inflated and is now clear. Heart and mediastinal structures within normal limits. Bony thorax intact again with osteopenia and mild degenerative changes. Impression: Nonacute chest with chronic bony findings.
--- NOTE | 2025-01-22 09:19 | XRAY ---
Indication: Elevated calcium levels. Multiple contiguous axial images obtained through the abdomen and pelvis prior to and following 80 cc Isovue 370 contrast. Comparison: CT abdomen only September 29, 2016 Lung bases now demonstrates mild diffuse pulmonary fibrosis/scarring and minimal dependent atelectasis. No infiltrate or effusion. Heart not enlarged again with scattered coronary calcifications and mitral valve calcifications. Noncontrasted images again demonstrates tiny hepatic/splenic calcified granulomas. Left kidney demonstrates 2 nonobstructing punctate calculus, previously only 1. No new pathologic visceral calcifications/calculi. Noncontrasted stomach and bowel loops appear nonobstructed again with colonic diverticulosis. Again previous gastric bypass surgery and cholecystectomy. No free fluid/air. Postcontrast images demonstrates normal visceral enhancement and renal excretion. A few small bilateral renal cysts, largest left midpole appearing exophytic measuring 1.4 cm. No suspicious solid renal mass, hydronephrosis, or hydroureter. Remaining liver, pancreas, spleen, adrenal glands, kidneys, ureters, bladder, and uterus are unremarkable. Again mild scattered aortoiliac calcifications. No AAA or pathologic retroperitoneal lymphadenopathy. Osseous structures intact again with osteopenia, minimal levoscoliosis, mild multilevel thoracolumbar degenerative spondylosis, grade 1 L4 anterolisthesis, and mild degenerative changes both hips. Impression: 1. New scattered pulmonary fibrosis/scarring. 2. Again chronic findings including mitral valve calcifications, colonic diverticulosis, nonobstructing left renal microcalculi, bilateral renal cysts, arteriosclerotic disease, chronic bony findings, and old granulomatous disease. 3. Remaining CT abdomen/pelvis with and without contrast exam continues to be negative.
[2025-01-22] MEDS ORDERED: NON-FORMULARY ITEM (Acetaminophen [Tylenol Arthritis] 650 MG Tablet.Er) PO SCH (10:00)
[2025-01-22] MEDS ORDERED: Aldactone 25 MG PO SCH (10:00)
[2025-01-22] MEDS ORDERED: VERAPAMIL HCL 200 MG PO SCH (10:00)
[2025-01-22] MEDS ORDERED: NON-FORMULARY ITEM (Losartan Potassium [Losartan Potassium] 25 MG Tablet) PO SCH (10:00)
[2025-01-22] MEDS: Imdur 60MG PO SCH (10:55)
[2025-01-22] MEDS: ISOPTIN SR PO SCH (10:55)
[2025-01-22] MEDS: ZOLOFT 50 MG TABLET PO SCH (10:56)
[2025-01-22] MEDS: Protonix 40MG Tablet PO SCH (10:57)
[2025-01-22] MEDS: Vitamin B-12 500 MCG PO SCH (10:57)
[2025-01-22] MEDS: Lasix 20 MG/2 ML IV SCH (10:58)
[2025-01-22] MEDS: Cozaar 50 MG PO SCH (10:58)
--- NOTE | 2025-01-22 12:00 | PCM.NOTE ---
Date and Time: 01/22/25 1200 Subjective Assessment: is a 74 year old female with a history of HTN, CHF, CKD, and prior gastric bypass (in 2016) who presented to the ED on 01/21/25 as a referral from her PCP for abnormal lab studies, specifically hypercalcemia. She has not had any kind of symptoms and denies muscle spasms or cramps. The patient states that she recently did have an elevated calcium once. She previously had consumed a significant amount of dairy but has cut out ice cream and cut back on cheese (at this time she has approximately 1 serving of cheese and one glass of milk daily). She also had been on a vitamin D supplement in the past but stopped taking that. She says that she has had about 20 pounds of unexpected weight loss over the last 5 months. She denies hematemesis, melena, rectal bleeding, worsening cough, or hemoptysis. She reports chronic dyspnea which is unchanged. 01/22/25 The patient is resting comfortably in bed and denies any current symptoms. Her calcium level this morning was 12.9 mg/dL, and a repeat level is pending. A CT scan of the abdomen and pelvis revealed no acute abnormalities, and chest X-ray findings were also unremarkable for any acute process, though they did show evidence of chronic pulmonary fibrosis and scarring. The patient does not currently follow with a vp human resources, and an appointment will be arranged with Dr. León in [place] per her request. Spironolactone has been held, as this medication may be contributing to her elevated calcium level. The patient reports that this medication was prescribed by her clinical nurse occupational medicine, Dr. Pr. Aragon. Lasix 20 mg twice daily has been initiated to assist in lowering her calcium level, and intravenous fluids are being continued for the same purpose. Her vitamin D level is significantly low; however, vitamin D supplementation is being deferred until calcium levels normalize. She was counseled on incorporating vitamin Drich foods into her diet and on the importance of safe sun exposure to help improve her levels naturally. Parathyroid hormone (PTH) results are pending, and thyroid-stimulating hormone (TSH) is normal. If her calcium level decreases to within the low-normal range and she remains clinically stable, the patient will likely be discharged tomorrow. She continues to rest comfortably and denies any new complaints at this time. - Review of Systems Constitutional: No Fever, No Chills Eyes: No Symptoms Ears, Nose, & Throat: No Symptoms Respiratory: No Cough, No Short Of Breath Cardiac: No Chest Pain, No Edema, No Syncope Abdominal/Gastrointestinal: No Abdominal Pain, No Nausea, No Vomiting, No Diarrhea Genitourinary Symptoms: No Dysuria Musculoskeletal: No Back Pain, No Neck Pain Skin: No Rash Neurological: No Dizziness, No Focal Weakness, No Sensory Changes Psychological: No Symptoms Endocrine: No Symptoms Hematologic/Lymphatic: No Symptoms Immunological/Allergic: No Symptoms Objective Exam General Appearance: no apparent distress, alert, obese Neurologic Exam: alert, oriented x 3, cooperative, normal mood/affect, nml cerebellar function, sensation nml, No motor deficits Skin Exam: normal color, warm, dry Eye Exam: PERRL, EOMI, eyes nml inspection Ears, Nose, Throat Exam: normal ENT inspection, pharynx normal, moist mucous membranes Neck Exam: normal inspection, non-tender, supple, full range of motion Respiratory Exam: normal breath sounds, lungs clear, No respiratory distress Cardiovascular Exam: regular rate/rhythm, normal heart sounds Gastrointestinal/Abdomen Exam: soft, No tenderness, No mass Extremity Exam: normal inspection, normal range of motion Back Exam: normal inspection, normal range of motion, No CVA tenderness, No vertebral tenderness Pelvic Exam: deferred Rectal Exam: deferred Objective Data Vital Signs: Vital Signs - 24 hr Temp Pulse Resp BP BP BP Pulse Ox 01/22/25 11:52 97.3 F 93 H 16 156/86 96 01/22/25 08:07 16 01/22/25 07:57 97.3 F 101 H 16 129/75 95 01/22/25 04:00 97.2 F 101 H 18 141/68 95 01/22/25 00:00 16 01/21/25 23:44 97.3 F 84 16 148/70 96 01/21/25 19:56 97.0 F 96 H 18 135/80 96 01/21/25 19:00 89 134/71 94 L 01/21/25 18:30 121/79 93 L 01/21/25 18:00 86 14 119/61 92 L 01/21/25 17:36 98 F 89 14 137/72 98 Pain Assessment - Last Documented Pain Intensity 0 Intake and Output: Intake & Output 11/07/1101/21/25 01/22/25 01/23/25 11:59 11:59 11:59 11:59 Intake Total 1396 Output Total 200 Balance 1196 Weight 69.7 kg Lab Results: Lab Results-Last 24 Hours 01/21/25 01/21/25 01/22/25 Range/Units 17:50 17:50 04:44 WBC 7.5 (3.98-10.04) x10^3/uL RBC 4.76 (3.93-5.22) x10^6/uL Hgb 13.3 (11.2-15.7) g/dL Hct 42.5 (34.1-44.9) % MCV 89.3 (79.4-94.8) fL MCH 27.9 (25.6-32.2) pg MCHC 31.3 L (32.2-35.5) g/dL RDW 14.6 H (11.7-14.4) % Plt Count 220 (182-369) x10^3/uL MPV 10.5 (9.4-12.3) fL Gran % 61.4 (34.0-71.1) % Immature Gran % (Auto) 0.4 (0.001-0.429) % Nucleat RBC Rel Count 0.0 (0.00-0.2) % Eos # (Auto) 0.21 (0.04-0.36) x10^3/uL Immature Gran # (Auto) 0.03 (0.001-0.031) x10^3u/L Absolute Lymphs (auto) 2.00 (1.18-3.74) x10^3/uL Absolute Monos (auto) 0.59 (0.24-0.86) x10^3/uL Absolute Nucleated RBC 0.00 (0.00-0.012) x10^3u/L Lymphocytes % 26.8 (19.3-51.7) % Monocytes % 7.9 (4.7-12.5) % Eosinophils % 2.8 (0.7-5.8) % Basophils % 0.7 (0.1-1.2) % Absolute Granulocytes 4.57 (1.56-6.13) x10^3/uL Basophils # 0.05 (0.01-0.08) x10^3/uL Sodium 138 (135-145) mmol/L Potassium 4.0 (3.5-5.1) mmol/L Chloride 105 (98-107) mmol/L Carbon Dioxide 27 (22-30) mmol/L Anion Gap 10.1 (5-15) MEQ/L BUN 23 H (7-17) mg/dL Creatinine 1.15 H (0.52-1.04) mg/dL Estimated GFR 49.7 ML/MIN Glucose 105 (74-106) mg/dL Calcium 13.8 H* (8.4-10.2) mg/dL Magnesium 1.8 (1.6-2.3) mg/dL Total Bilirubin 0.50 (0.2-1.3) mg/dL AST 23 (14-36) U/L ALT 13 (0-35) U/L Alkaline Phosphatase 70 (38-126) U/L NT-Pro-B Natriuret Pep (<300) pg/mL Serum Total Protein 7.0 (6.3-8.2) g/dL Albumin 4.0 (3.5-5.0) g/dL 25-OH Vitamin D Total (30-100) ng/mL TSH 3rd Generation 1.610 (0.470-4.680) mIU/L 01/22/25 01/22/25 01/22/25 Range/Units 04:44 04:44 04:44 WBC 6.8 (3.98-10.04) x10^3/uL RBC 4.57 (3.93-5.22) x10^6/uL Hgb 12.5 (11.2-15.7) g/dL Hct 41.1 (34.1-44.9) % MCV 89.9 (79.4-94.8) fL MCH 27.4 (25.6-32.2) pg MCHC 30.4 L (32.2-35.5) g/dL RDW 14.6 H (11.7-14.4) % Plt Count 185 (182-369) x10^3/uL MPV 10.8 (9.4-12.3) fL Gran % 64.6 (34.0-71.1) % Immature Gran % (Auto) 0.4 (0.001-0.429) % Nucleat RBC Rel Count 0.0 (0.00-0.2) % Eos # (Auto) 0.28 (0.04-0.36) x10^3/uL Immature Gran # (Auto) 0.03 (0.001-0.031) x10^3u/L Absolute Lymphs (auto) 1.65 (1.18-3.74) x10^3/uL Absolute Monos (auto) 0.41 (0.24-0.86) x10^3/uL Absolute Nucleated RBC 0.00 (0.00-0.012) x10^3u/L Lymphocytes % 24.4 (19.3-51.7) % Monocytes % 6.1 (4.7-12.5) % Eosinophils % 4.1 (0.7-5.8) % Basophils % 0.4 (0.1-1.2) % Absolute Granulocytes 4.37 (1.56-6.13) x10^3/uL Basophils # 0.03 (0.01-0.08) x10^3/uL Sodium 137 (135-145) mmol/L Potassium 4.0 (3.5-5.1) mmol/L Chloride 109 H (98-107) mmol/L Carbon Dioxide 25 (22-30) mmol/L Anion Gap 7.4 (5-15) MEQ/L BUN 20 H (7-17) mg/dL Creatinine 1.03 (0.52-1.04) mg/dL Estimated GFR 56.7 ML/MIN Glucose 90 (74-106) mg/dL Calcium 12.9 H* (8.4-10.2) mg/dL Magnesium (1.6-2.3) mg/dL Total Bilirubin 0.50 (0.2-1.3) mg/dL AST 19 (14-36) U/L ALT 10 (0-35) U/L Alkaline Phosphatase 64 (38-126) U/L NT-Pro-B Natriuret Pep (<300) pg/mL Serum Total Protein 6.0 L (6.3-8.2) g/dL Albumin 3.3 L (3.5-5.0) g/dL 25-OH Vitamin D Total < 12.8 L (30-100) ng/mL TSH 3rd Generation (0.470-4.680) mIU/L 11/06/25 Range/Units 04:44 WBC (3.98-10.04) x10^3/uL RBC (3.93-5.22) x10^6/uL Hgb (11.2-15.7) g/dL Hct (34.1-44.9) % MCV (79.4-94.8) fL MCH (25.6-32.2) pg MCHC (32.2-35.5) g/dL RDW (11.7-14.4) % Plt Count (182-369) x10^3/uL MPV (9.4-12.3) fL Gran % (34.0-71.1) % Immature Gran % (Auto) (0.001-0.429) % Nucleat RBC Rel Count (0.00-0.2) % Eos # (Auto) (0.04-0.36) x10^3/uL Immature Gran # (Auto) (0.001-0.031) x10^3u/L Absolute Lymphs (auto) (1.18-3.74) x10^3/uL Absolute Monos (auto) (0.24-0.86) x10^3/uL Absolute Nucleated RBC (0.00-0.012) x10^3u/L Lymphocytes % (19.3-51.7) % Monocytes % (4.7-12.5) % Eosinophils % (0.7-5.8) % Basophils % (0.1-1.2) % Absolute Granulocytes (1.56-6.13) x10^3/uL Basophils # (0.01-0.08) x10^3/uL Sodium (135-145) mmol/L Potassium (3.5-5.1) mmol/L Chloride (98-107) mmol/L Carbon Dioxide (22-30) mmol/L Anion Gap (5-15) MEQ/L BUN (7-17) mg/dL Creatinine (0.52-1.04) mg/dL Estimated GFR ML/MIN Glucose (74-106) mg/dL Calcium (8.4-10.2) mg/dL Magnesium (1.6-2.3) mg/dL Total Bilirubin (0.2-1.3) mg/dL AST (14-36) U/L ALT (0-35) U/L Alkaline Phosphatase (38-126) U/L NT-Pro-B Natriuret Pep 467 (<300) pg/mL Serum Total Protein (6.3-8.2) g/dL Albumin (3.5-5.0) g/dL 25-OH Vitamin D Total (30-100) ng/mL TSH 3rd Generation (0.470-4.680) mIU/L Radiology Exams: Radiology Procedures Category Date Time Status ABDOMEN AND PELVIS W&WO CONTRA [CT] Routine Exams 01/22/25 07:25 Completed CHEST 1 VIEW (PORTABLE) Stat Exams 01/21/25 17:51 Completed Medications: Medications Generic Name Dose Route Start Last Admin Trade Name Freq PRN Reason Stop Dose Admin Acetaminophen 1,000 mg 01/21/25 20:32 Acetaminophen 500 Mg Tablet PO 02/20/25 20:31 DAILY PRN PRN PAIN Apixaban 5 mg 01/21/25 22:00 01/22/25 10:56 Apixaban 2.5 Mg Tablet PO 02/20/25 21:59 5 mg BID LENIN Administration Cyanocobalamin 1,000 mcg 01/22/25 10:00 01/22/25 10:57 Cyanocobalamin 500 Mcg Tablet PO 02/21/25 09:59 1,000 mcg DAILY LENIN Administration Furosemide 20 mg 01/22/25 10:00 01/22/25 10:58 Furosemide 20 Mg/Vial IV 02/21/25 09:59 20 mg BID DIURETIC LENIN Administration Sodium Chloride 1,000 mls @ 100 mls/hr 01/21/25 20:15 01/22/25 08:00 Sodium Chloride 0.9% 1000 Ml IV 02/20/25 20:14 100 mls/hr .Q10H LENIN Administration Isosorbide Mononitrate 60 mg 01/22/25 10:00 01/22/25 10:55 Isosorbide Mononitrate 60 Mg Tab PO 02/21/25 09:59 60 mg DAILY LENIN Administration Losartan Potassium 100 mg 01/22/25 10:00 01/22/25 10:58 Losartan Potassium 50 Mg Tablet PO 02/21/25 09:59 100 mg DAILY LENIN Administration Nitroglycerin 0.4 mg 01/21/25 20:11 Nitroglycerin 0.4 Mg Tablet Bottle SL 02/20/25 20:10 Q5MIN PRN MR X 3 PRN CHEST PAIN Ondansetron HCl 4 mg 01/21/25 20:12 Ondansetron Hcl 4 Mg/2 Ml Vial IV 02/20/25 20:11 Q6H PRN PRN NAUSEA/VOMITING Pantoprazole Sodium 40 mg 01/22/25 10:00 01/22/25 10:57 Protonix (Pantoprazole) 40 Mg Tablet PO 02/21/25 09:59 40 mg DAILY LENIN Administration Sertraline HCl 100 mg 01/22/25 10:00 01/22/25 10:56 Sertraline Hcl 50 Mg Tab PO 02/21/25 09:59 100 mg DAILY LENIN Administration Verapamil HCl 240 mg 01/22/25 10:00 01/22/25 10:55 Verapamil Hcl Sr 240 Mg Tablet.Sa PO 02/21/25 09:59 240 mg DAILY LENIN Administration Discontinued Medications Generic Name Dose Route Start Last Admin Trade Name Freq PRN Reason Stop Dose Admin Spironolactone 25 mg 01/22/25 10:00 Spironolactone 25 Mg Tablet PO 02/21/25 09:59 DAILY LENIN Assessment/Plan (1) Hypercalcemia Current Visit: Yes Status: Acute Assessment & Plan: - CA+ 12.9 today- trend - CBC, CMP reviewed - Hold spirolactone- f/u with cardiology OP to discuss med - Lasix 20 BID IV - IVF - Tele - PTH- pending - TSH- WNL - Vitamin D low - Chest XR : Impression: Nonacute chest with chronic bony findings. - CT abd/pelvis: 1. New scattered pulmonary fibrosis/scarring. 2. Again chronic findings including mitral valve calcifications, colonic diverticulosis, nonobstructing left renal microcalculi, bilateral renal cysts, arteriosclerotic disease, chronic bony findings, and old granulomatous disease. 3. Remaining CT abdomen/pelvis with and without contrast exam continues to be negative. Code(s): E83.52 - HYPERCALCEMIA (2) Vitamin D deficiency Current Visit: Yes Status: Acute Assessment & Plan: - Vitamin D <12.8 - Education provided on increasing naturally with foods and sun Code(s): E55.9 - VITAMIN D DEFICIENCY, UNSPECIFIED (3) Obesity (BMI 30.0-34.9) Current Visit: Yes Status: Chronic Assessment & Plan: - advised diet and exercise control Code(s): E66.811 - OBESITY, CLASS 1 (4) Pulmonary fibrosis Current Visit: Yes Status: Chronic Assessment & Plan: - As seen on CXR - OP Pulm f/u - RA 93% Code(s): J84.10 - PULMONARY FIBROSIS, UNSPECIFIED (5) HTN (hypertension) Current Visit: Yes Status: Chronic Assessment & Plan: - Cont home meds except spirolactone - BP stable Code(s): I10 - ESSENTIAL (PRIMARY) HYPERTENSION (6) CHF (congestive heart failure) Current Visit: No Status: Chronic Assessment & Plan: - Not in acute exacerbation - BNP, CXR reviewed Code(s): I50.9 - HEART FAILURE, UNSPECIFIED (7) Chiari malformation type II Current Visit: No Status: Chronic Assessment & Plan: - Chronic Code(s): Q07.01 - ARNOLD-CHIARI SYNDROME WITH SPINA BIFIDA (8) Hx of stroke without residual deficits Current Visit: No Status: Chronic Assessment & Plan: - Continue Eliquis (9) Acute kidney injury Current Visit: No Status: Resolved Assessment & Plan: - Resolved 01/22 VTE: Eliquis PPI: Protonix Next of KIN: Child- Reina Benjamin [phone] D/C plan: 1-2 days Code status: Full Plan of care time > 40 minutes Code(s): N17.9 - ACUTE KIDNEY FAILURE, UNSPECIFIED
[2025-01-23 07:42] LABS: Hematocrit 39.8 % (34.1-44.9); Hemoglobin 12.4 g/dL (11.2-15.7); Mean Corpuscular Hemoglobin 27.8 pg (25.6-32.2); Mean Corpuscular Hgb Concent. 31.2 g/dL (32.2-35.5); Platelet Count 179 x10^3/uL (182-369); Red Blood Count 4.46 x10^6/uL (3.93-5.22); White Blood Count 4.6 x10^3/uL (3.98-10.04)
[2025-01-23 07:51] LABS: Carbon Dioxide 25.0 mmol/L (22-30); Creatinine 1 1.08 mg/dL (0.52-1.04); EST GLOMERULAR FILTRATION RATE 53.6 ML/MIN; Glucose 88.0 mg/dL (74-106); Potassium 3.7 mmol/L (3.5-5.1); SGOT/AST 20.0 U/L (14-36); SGPT/ALT 11.0 U/L (0-35); Total Protein 6.2 g/dL (6.3-8.2)
[2025-01-23 08:05] LABS: Calcium 12.2 mg/dL (8.4-10.2)
--- NOTE | 2025-01-23 09:32 | PCM.NOTE ---
Date and Time: 01/23/25 0926 Subjective Assessment: is a 74 year old female with a history of HTN, CHF, CKD, and prior gastric bypass (in 2016) who presented to the ED on 01/21/25 as a referral from her PCP for abnormal lab studies, specifically hypercalcemia. She has not had any kind of symptoms and denies muscle spasms or cramps. The patient states that she recently did have an elevated calcium once. She previously had consumed a significant amount of dairy but has cut out ice cream and cut back on cheese (at this time she has approximately 1 serving of cheese and one glass of milk daily). She also had been on a vitamin D supplement in the past but stopped taking that. She says that she has had about 20 pounds of unexpected weight loss over the last 5 months. She denies hematemesis, melena, rectal bleeding, worsening cough, or hemoptysis. She reports chronic dyspnea which is unchanged. 01/22/25 The patient is resting comfortably in bed and denies any current symptoms. Her calcium level this morning was 12.9 mg/dL, and a repeat level is pending. A CT scan of the abdomen and pelvis revealed no acute abnormalities, and chest X-ray findings were also unremarkable for any acute process, though they did show evidence of chronic pulmonary fibrosis and scarring. The patient does not currently follow with a rest room attendant, and an appointment will be arranged with Dr. León in [place] per her request. Spironolactone has been held, as this medication may be contributing to her elevated calcium level. The patient reports that this medication was prescribed by her cook's assistant, Dr. Pr. Aragon. Lasix 20 mg twice daily has been initiated to assist in lowering her calcium level, and intravenous fluids are being continued for the same purpose. Her vitamin D level is significantly low; however, vitamin D supplementation is being deferred until calcium levels normalize. She was counseled on incorporating vitamin Drich foods into her diet and on the importance of safe sun exposure to help improve her levels naturally. Parathyroid hormone (PTH) results are pending, and thyroid-stimulating hormone (TSH) is normal. If her calcium level decreases to within the low-normal range and she remains clinically stable, the patient will likely be discharged tomorrow. She continues to rest comfortably and denies any new complaints at this time. 01/23 The patient is resting comfortably in bed and reports no complaints at this time. Her calcium level remains elevated at 12.2 mg/dL. Lasix will be continued today to help lower the calcium level. Serum creatinine is slightly elevated compared to baseline, and renal function will be closely monitored; if kidney function worsens, Lasix may need to be discontinued, and intravenous fluids will be continued alone to promote calcium excretion. The patient was informed of the plan of care and understands that she will need to remain hospitalized until her calcium level improves. - Review of Systems Constitutional: No Fever, No Chills Eyes: No Symptoms Ears, Nose, & Throat: No Symptoms Respiratory: No Cough, No Short Of Breath Cardiac: No Chest Pain, No Edema, No Syncope Abdominal/Gastrointestinal: No Abdominal Pain, No Nausea, No Vomiting, No Diarrhea Genitourinary Symptoms: No Dysuria Musculoskeletal: No Back Pain, No Neck Pain Skin: No Rash Neurological: No Dizziness, No Focal Weakness, No Sensory Changes Psychological: No Symptoms Endocrine: No Symptoms Hematologic/Lymphatic: No Symptoms Immunological/Allergic: No Symptoms Objective Exam General Appearance: no apparent distress, alert Neurologic Exam: alert, oriented x 3, cooperative, normal mood/affect, nml cerebellar function, sensation nml, No motor deficits Skin Exam: normal color, warm, dry, pale Eye Exam: PERRL, EOMI, eyes nml inspection Ears, Nose, Throat Exam: normal ENT inspection, pharynx normal, moist mucous membranes Neck Exam: normal inspection, non-tender, supple, full range of motion Respiratory Exam: normal breath sounds, lungs clear, No respiratory distress Cardiovascular Exam: regular rate/rhythm, normal heart sounds Gastrointestinal/Abdomen Exam: soft, No tenderness, No mass Extremity Exam: normal inspection, normal range of motion Back Exam: normal inspection, normal range of motion, No CVA tenderness, No vertebral tenderness Pelvic Exam: deferred Rectal Exam: deferred Objective Data Vital Signs: Vital Signs - 24 hr Temp Pulse Resp BP Pulse Ox 01/23/25 08:00 98.0 F 93 H 16 140/67 95 01/23/25 04:00 97.5 F 86 18 141/96 95 01/23/25 00:00 97.7 F 119 H 17 127/78 98 01/22/25 19:38 97.6 F 69 20 127/58 97 01/22/25 16:05 97.5 F 92 H 16 134/73 01/22/25 12:04 16 01/22/25 11:52 97.3 F 93 H 16 156/86 96 Pain Assessment - Last Documented Pain Intensity 0 Intake and Output: Intake & Output 01/20/25 01/21/25 01/22/25 01/23/25 11:59 11:59 11:59 11:59 Intake Total 1396 3055 Output Total 200 2500 Balance 1196 555 Weight 69.7 kg Lab Results: Lab Results-Last 24 Hours 01/22/25 01/22/25 01/23/25 Range/Units 04:44 14:28 07:33 WBC 4.6 (3.98-10.04) x10^3/uL RBC 4.46 (3.93-5.22) x10^6/uL Hgb 12.4 (11.2-15.7) g/dL Hct 39.8 (34.1-44.9) % MCV 89.2 (79.4-94.8) fL MCH 27.8 (25.6-32.2) pg MCHC 31.2 L (32.2-35.5) g/dL RDW 14.5 H (11.7-14.4) % Plt Count 179 L (182-369) x10^3/uL MPV 10.4 (9.4-12.3) fL Sodium (135-145) mmol/L Potassium (3.5-5.1) mmol/L Chloride (98-107) mmol/L Carbon Dioxide (22-30) mmol/L Anion Gap (5-15) MEQ/L BUN (7-17) mg/dL Creatinine (0.52-1.04) mg/dL Estimated GFR ML/MIN Glucose (74-106) mg/dL Calcium 12.5 H* (8.4-10.2) mg/dL Total Bilirubin (0.2-1.3) mg/dL AST (14-36) U/L ALT (0-35) U/L Alkaline Phosphatase (38-126) U/L Serum Total Protein (6.3-8.2) g/dL Albumin (3.5-5.0) g/dL 25-OH Vitamin D Total < 12.8 L (30-100) ng/mL 01/23/25 Range/Units 07:33 WBC (3.98-10.04) x10^3/uL RBC (3.93-5.22) x10^6/uL Hgb (11.2-15.7) g/dL Hct (34.1-44.9) % MCV (79.4-94.8) fL MCH (25.6-32.2) pg MCHC (32.2-35.5) g/dL RDW (11.7-14.4) % Plt Count (182-369) x10^3/uL MPV (9.4-12.3) fL Sodium 137 (135-145) mmol/L Potassium 3.7 (3.5-5.1) mmol/L Chloride 108 H (98-107) mmol/L Carbon Dioxide 25 (22-30) mmol/L Anion Gap 8.1 (5-15) MEQ/L BUN 17 (7-17) mg/dL Creatinine 1.08 H (0.52-1.04) mg/dL Estimated GFR 53.6 ML/MIN Glucose 88 (74-106) mg/dL Calcium 12.2 H* (8.4-10.2) mg/dL Total Bilirubin 0.70 (0.2-1.3) mg/dL AST 20 (14-36) U/L ALT 11 (0-35) U/L Alkaline Phosphatase 65 (38-126) U/L Serum Total Protein 6.2 L (6.3-8.2) g/dL Albumin 3.5 (3.5-5.0) g/dL 25-OH Vitamin D Total (30-100) ng/mL Radiology Exams: Radiology Procedures Category Date Time Status ABDOMEN AND PELVIS W&WO CONTRA [CT] Routine Exams 01/22/25 07:25 Completed CHEST 1 VIEW (PORTABLE) Stat Exams 01/21/25 17:51 Completed Medications: Medications Generic Name Dose Route Start Last Admin Trade Name Freq PRN Reason Stop Dose Admin Acetaminophen 1,000 mg 01/21/25 20:32 Acetaminophen 500 Mg Tablet PO 02/20/25 20:31 DAILY PRN PRN PAIN Apixaban 5 mg 01/21/25 22:00 01/22/25 21:19 Apixaban 2.5 Mg Tablet PO 02/20/25 21:59 5 mg BID LENIN Administration Cyanocobalamin 1,000 mcg 01/22/25 10:00 01/22/25 10:57 Cyanocobalamin 500 Mcg Tablet PO 02/21/25 09:59 1,000 mcg DAILY LENIN Administration Furosemide 20 mg 01/22/25 10:00 01/22/25 17:37 Furosemide 20 Mg/Vial IV 02/21/25 09:59 20 mg BID DIURETIC LENIN Administration Isosorbide Mononitrate 60 mg 01/22/25 10:00 01/22/25 10:55 Isosorbide Mononitrate 60 Mg Tab PO 02/21/25 09:59 60 mg DAILY LENIN Administration Losartan Potassium 100 mg 01/22/25 10:00 01/22/25 10:58 Losartan Potassium 50 Mg Tablet PO 02/21/25 09:59 100 mg DAILY LENIN Administration Nitroglycerin 0.4 mg 01/21/25 20:11 Nitroglycerin 0.4 Mg Tablet Bottle SL 02/20/25 20:10 Q5MIN PRN MR X 3 PRN CHEST PAIN Ondansetron HCl 4 mg 01/21/25 20:12 Ondansetron Hcl 4 Mg/2 Ml Vial IV 02/20/25 20:11 Q6H PRN PRN NAUSEA/VOMITING Pantoprazole Sodium 40 mg 01/22/25 10:00 01/22/25 10:57 Protonix (Pantoprazole) 40 Mg Tablet PO 02/21/25 09:59 40 mg DAILY LENIN Administration Sertraline HCl 100 mg 01/22/25 10:00 01/22/25 10:56 Sertraline Hcl 50 Mg Tab PO 02/21/25 09:59 100 mg DAILY LENIN Administration Verapamil HCl 240 mg 01/22/25 10:00 01/22/25 10:55 Verapamil Hcl Sr 240 Mg Tablet.Sa PO 02/21/25 09:59 240 mg DAILY LENIN Administration Discontinued Medications Generic Name Dose Route Start Last Admin Trade Name Freq PRN Reason Stop Dose Admin Sodium Chloride 1,000 mls @ 100 mls/hr 01/21/25 20:15 01/23/25 04:00 Sodium Chloride 0.9% 1000 Ml IV 02/20/25 20:14 100 mls/hr .Q10H LENIN Administration Spironolactone 25 mg 01/22/25 10:00 Spironolactone 25 Mg Tablet PO 02/21/25 09:59 DAILY LENIN Assessment/Plan (1) Hypercalcemia Current Visit: Yes Status: Acute Code(s): E83.52 - HYPERCALCEMIA (2) Vitamin D deficiency Current Visit: Yes Status: Acute Code(s): E55.9 - VITAMIN D DEFICIENCY, UNSPECIFIED (3) Obesity (BMI 30.0-34.9) Current Visit: Yes Status: Chronic Code(s): E66.811 - OBESITY, CLASS 1 (4) Pulmonary fibrosis Current Visit: Yes Status: Chronic Code(s): J84.10 - PULMONARY FIBROSIS, UNSPECIFIED (5) HTN (hypertension) Current Visit: Yes Status: Chronic Code(s): I10 - ESSENTIAL (PRIMARY) HYPERTENSION (6) CHF (congestive heart failure) Current Visit: No Status: Chronic Code(s): I50.9 - HEART FAILURE, UNSPECIFIED (7) Chiari malformation type II Current Visit: No Status: Chronic Code(s): Q07.01 - ARNOLD-CHIARI SYNDROME WITH SPINA BIFIDA (8) Hx of stroke without residual deficits Current Visit: No Status: Chronic (9) Acute kidney injury Current Visit: No Status: Resolved Assessment & Plan: (1) Hypercalcemia Current Visit: Yes Status: Acute Assessment & Plan: - CA+ 12.9 today- trend - CBC, CMP reviewed - Hold spirolactone- f/u with cardiology OP to discuss med as may be causing hypercalcemia - Lasix 20 BID IV - IVF - Tele - PTH- pending - TSH- WNL - Vitamin D low - Chest XR : Impression: Nonacute chest with chronic bony findings. - CT abd/pelvis: 1. New scattered pulmonary fibrosis/scarring. 2. Again chronic findings including mitral valve calcifications, colonic diverticulosis, nonobstructing left renal microcalculi, bilateral renal cysts, arteriosclerotic disease, chronic bony findings, and old granulomatous disease. 3. Remaining CT abdomen/pelvis with and without contrast exam continues to be negative. 01/23 - Ca+ 12.2 - Continue Lasix, if kidney function worsens consider IVF alone Code(s): E83.52 - HYPERCALCEMIA (2) Vitamin D deficiency Current Visit: Yes Status: Acute Assessment & Plan: - Vitamin D <12.8 - Education provided on increasing naturally with foods and sun Code(s): E55.9 - VITAMIN D DEFICIENCY, UNSPECIFIED (3) Obesity (BMI 30.0-34.9) Current Visit: Yes Status: Chronic Assessment & Plan: - Advised diet and exercise control Code(s): E66.811 - OBESITY, CLASS 1 (4) Pulmonary fibrosis Current Visit: Yes Status: Chronic Assessment & Plan: - As seen on CXR - OP Pulm f/u - RA 93% Code(s): J84.10 - PULMONARY FIBROSIS, UNSPECIFIED (5) HTN (hypertension) Current Visit: Yes Status: Chronic Assessment & Plan: - Cont home meds except spirolactone - BP stable Code(s): I10 - ESSENTIAL (PRIMARY) HYPERTENSION (6) CHF (congestive heart failure) Current Visit: No Status: Chronic Assessment & Plan: - Not in acute exacerbation - BNP, CXR reviewed Code(s): I50.9 - HEART FAILURE, UNSPECIFIED (7) Chiari malformation type II Current Visit: No Status: Chronic Assessment & Plan: - Chronic Code(s): Q07.01 - ARNOLD-CHIARI SYNDROME WITH SPINA BIFIDA (8) Hx of stroke without residual deficits Current Visit: No Status: Chronic Assessment & Plan: - Continue Eliquis (9) Acute kidney injury Current Visit: No Status: Resolved Assessment & Plan: - Creat 1.08- trend, BL normal VTE: Eliquis PPI: Protonix Next of KIN: Child- Reina Benjamin [phone] D/C plan: 1-2 days Code status: Full Plan of care time > 40 minutes Code(s): N17.9 - ACUTE KIDNEY FAILURE, UNSPECIFIED Code(s): N17.9 - ACUTE KIDNEY FAILURE, UNSPECIFIED
[2025-01-23 12:36] LABS: Calcium 12.5 mg/dL (8.4-10.2)
--- NOTE | 2025-01-23 12:59 | XRAY ---
Indication: Elevated calcium. Multiple contiguous axial images obtained through the chest prior to and following 80 cc Isovue 370 contrast as ordered. Comparison: October 02, 2024 Lungs demonstrates minimal bilateral dependent atelectasis. No suspicious pulmonary mass/nodule, infiltrate, or effusion. Heart not enlarged with scattered coronary calcifications. Minimal aortic calcifications without aneurysm/dissection. Small left hilar calcified nodes. No pathologic mediastinal/hilar lymphadenopathy. Bony thorax intact with mild degenerative changes throughout spine. CT abdomen/pelvis with and without contrast exam reported 1 day earlier. Impression: Chronic findings including arteriosclerotic disease, degenerative spondylosis, and old granulomatous disease. Remaining CT chest with and without contrast exam is negative.
[2025-01-23] MEDS: MAG-OX 400 PO ONE (13:57)
[2025-01-24 06:11] LABS: Hematocrit 41.7 % (34.1-44.9); Hemoglobin 13.0 g/dL (11.2-15.7); Mean Corpuscular Hemoglobin 27.6 pg (25.6-32.2); Mean Corpuscular Hgb Concent. 31.2 g/dL (32.2-35.5); Platelet Count 186 x10^3/uL (182-369); Red Blood Count 4.71 x10^6/uL (3.93-5.22); White Blood Count 5.0 x10^3/uL (3.98-10.04)
[2025-01-24 06:25] LABS: Carbon Dioxide 28.0 mmol/L (22-30); Creatinine 1 1.11 mg/dL (0.52-1.04); EST GLOMERULAR FILTRATION RATE 51.8 ML/MIN; Glucose 89.0 mg/dL (74-106); Potassium 3.6 mmol/L (3.5-5.1); SGOT/AST 26.0 U/L (14-36); SGPT/ALT 11.0 U/L (0-35); Total Protein 6.8 g/dL (6.3-8.2)
[2025-01-24 06:34] LABS: Calcium 12.6 mg/dL (8.4-10.2)
--- NOTE | 2025-01-24 10:35 | PCM.DS ---
Discharge Summary Date of Admission: 01/22/25 08:00 Date of Discharge: 01/24/25 Admitting Physician: AYSE JERONIMO MD Consults: Consults on Case 01/21/25 20:31 Case Management SDOH DC Needs Assessment ROUTINE 01/23/25 11:23 Consult Nephrology ROUTINE Primary Care Provider: REECE SINGLETON Allergies Allergies Beta-Blockers (Beta-Adrenergic Bloc Allergy (Verified 01/21/25 17:47) Hospital Summary - Hospital Course Hospital Course: is a 74-year-old female with a medical history significant for hypertension, congestive heart failure, chronic kidney disease, and prior gastric bypass surgery in 2016 who presented to the emergency department on 01/21/25 as a referral from her primary care physician due to abnormal laboratory findings, specifically hypercalcemia. The patient was asymptomatic on presentation and denied any muscle cramps, spasms, or other related symptoms. She reported a prior episode of elevated calcium and noted that she had previously consumed large amounts of dairy but has since significantly reduced her intake to one serving of cheese and one glass of milk daily. She had also discontinued her vitamin D supplement. She endorsed an approximate 20-pound unintentional weight loss over the past five months but denied any gastrointestinal bleeding, melena, hematemesis, worsening cough, or hemoptysis. She does have chronic dyspnea, which remains unchanged. During her hospitalization, the patient remained clinically stable and asymptomatic. On 01/22/25, her calcium level was 12.9 mg/dL, with repeat levels remaining persistently elevated. A CT scan of the abdomen and pelvis showed no acute abnormalities, and chest X-ray revealed chronic pulmonary fibrosis and scarring without acute findings. She does not currently follow with pulmonology, and an outpatient referral will be arranged with Dr. León in [place] per her request. Spironolactone was held as it may contribute to elevated calcium levels, and Lasix 20 mg twice daily was initiated to aid in calcium reduction along with continued intravenous fluids. Her vitamin D level was found to be low; however, vitamin D supplementation was deferred until calcium normalization. She was counseled on incorporating vitamin Drich foods into her diet and on obtaining safe sunlight exposure. On 01/23, her calcium level remained elevated at 12.2 mg/dL, and Lasix was continued. Her creatinine was mildly elevated compared to baseline, so renal function was closely monitored. A CT scan of the chest was performed to evaluate for possible malignancy as a cause of her elevated calcium, and no concerning or acute abnormalities were identified. On 01/24, the patient continued to rest comfortably, expressing readiness for discharge. Her calcium remained elevated at 12.6 mg/dL, and parathyroid hormone (PTH) returned elevated at 90 pg/mL, consistent with hyperparathyroidism as a likely etiology for her persistent hypercalcemia. Lasix was discontinued due to rising creatinine (1.11 mg/dL from baseline normal), and normal saline was continued at 50 mL/hr for hydration. Nephrology consultation was requested but pending evaluation. At discharge, the patient was advised to follow up with endocrinology for management of elevated PTH and hypercalcemia. She will have her primary care physician arrange the referral to the same nitrocellulose operator her children see, as she was unsure of the providers name. She will begin outpatient calcitonin therapy and follow up with her PCP to reassess her vitamin D status once calcium levels stabilize. Repeat outpatient laboratory studies will be necessary to monitor kidney function and calcium levels. The patient was encouraged to maintain good oral hydration to support renal function. She remains asymptomatic and was discharged home in stable condition. - Vitals & Intake/Output Vital Signs: Vital Signs Temperature 97.8 F 01/24/25 06:58 Pulse Rate 94 H 01/24/25 09:16 Respiratory Rate 16 01/24/25 08:00 Blood Pressure 126/74 01/24/25 09:16 O2 Sat by Pulse Oximetry 96 01/24/25 06:58 Intake & Output: Intake & Output 01/21/25 01/22/25 01/23/25 01/24/25 11:59 11:59 11:59 11:59 Intake Total 1396 3175 1230 Output Total 200 3300 2125 Balance 1196 -125 -895 Weight 69.7 kg - Lab Result Diagrams: 01/24/25 05:55 01/24/25 05:55 Lab Results-Last 24 Hrs: Lab Results-Last 24 Hours 01/22/25 01/23/25 01/23/25 Range/Units 04:44 12:12 12:12 WBC (3.98-10.04) x10^3/uL RBC (3.93-5.22) x10^6/uL Hgb (11.2-15.7) g/dL Hct (34.1-44.9) % MCV (79.4-94.8) fL MCH (25.6-32.2) pg MCHC (32.2-35.5) g/dL RDW (11.7-14.4) % Plt Count (182-369) x10^3/uL MPV (9.4-12.3) fL Sodium (135-145) mmol/L Potassium (3.5-5.1) mmol/L Chloride (98-107) mmol/L Carbon Dioxide (22-30) mmol/L Anion Gap (5-15) MEQ/L BUN (7-17) mg/dL Creatinine (0.52-1.04) mg/dL Estimated GFR ML/MIN Glucose (74-106) mg/dL Calcium 12.5 H* (8.4-10.2) mg/dL Magnesium 1.7 (1.6-2.3) mg/dL Total Bilirubin (0.2-1.3) mg/dL AST (14-36) U/L ALT (0-35) U/L Alkaline Phosphatase (38-126) U/L Troponin I < 0.012 (0.000-0.033) ng/mL Serum Total Protein (6.3-8.2) g/dL Albumin (3.5-5.0) g/dL PTH Intact Whole Molec 90 H (15-65) pg/mL 01/23/25 01/23/25 01/24/25 Range/Units 14:50 18:04 05:55 WBC 5.0 (3.98-10.04) x10^3/uL RBC 4.71 (3.93-5.22) x10^6/uL Hgb 13.0 (11.2-15.7) g/dL Hct 41.7 (34.1-44.9) % MCV 88.5 (79.4-94.8) fL MCH 27.6 (25.6-32.2) pg MCHC 31.2 L (32.2-35.5) g/dL RDW 14.4 (11.7-14.4) % Plt Count 186 (182-369) x10^3/uL MPV 10.5 (9.4-12.3) fL Sodium (135-145) mmol/L Potassium (3.5-5.1) mmol/L Chloride (98-107) mmol/L Carbon Dioxide (22-30) mmol/L Anion Gap (5-15) MEQ/L BUN (7-17) mg/dL Creatinine (0.52-1.04) mg/dL Estimated GFR ML/MIN Glucose (74-106) mg/dL Calcium (8.4-10.2) mg/dL Magnesium (1.6-2.3) mg/dL Total Bilirubin (0.2-1.3) mg/dL AST (14-36) U/L ALT (0-35) U/L Alkaline Phosphatase (38-126) U/L Troponin I < 0.012 < 0.012 (0.000-0.033) ng/mL Serum Total Protein (6.3-8.2) g/dL Albumin (3.5-5.0) g/dL PTH Intact Whole Molec (15-65) pg/mL 01/24/25 Range/Units 05:55 WBC (3.98-10.04) x10^3/uL RBC (3.93-5.22) x10^6/uL Hgb (11.2-15.7) g/dL Hct (34.1-44.9) % MCV (79.4-94.8) fL MCH (25.6-32.2) pg MCHC (32.2-35.5) g/dL RDW (11.7-14.4) % Plt Count (182-369) x10^3/uL MPV (9.4-12.3) fL Sodium 137 (135-145) mmol/L Potassium 3.6 (3.5-5.1) mmol/L Chloride 104 (98-107) mmol/L Carbon Dioxide 28 (22-30) mmol/L Anion Gap 8.4 (5-15) MEQ/L BUN 18 H (7-17) mg/dL Creatinine 1.11 H (0.52-1.04) mg/dL Estimated GFR 51.8 ML/MIN Glucose 89 (74-106) mg/dL Calcium 12.6 H* (8.4-10.2) mg/dL Magnesium (1.6-2.3) mg/dL Total Bilirubin 0.70 (0.2-1.3) mg/dL AST 26 (14-36) U/L ALT 11 (0-35) U/L Alkaline Phosphatase 70 (38-126) U/L Troponin I (0.000-0.033) ng/mL Serum Total Protein 6.8 (6.3-8.2) g/dL Albumin 3.9 (3.5-5.0) g/dL PTH Intact Whole Molec (15-65) pg/mL - Radiology Exams Ordered Rad Exams-Entire Visit: Radiology Procedures Category Date Time Status CHEST W/WO CONTRAST [CT] Routine Exams 01/23/25 11:44 Completed - Procedures and Test Procedures and Tests throughout Hospitalization: Therapy Orders & Screens 01/23/25 12:23 EKG STAT Comment: Diagnosis: HYPERCALCEMIA Discharge Exam General Appearance: no apparent distress, alert Neurologic Exam: alert, oriented x 3, cooperative, normal mood/affect, nml cerebellar function, sensation nml, No motor deficits Eye Exam: PERRL, EOMI, eyes nml inspection Ears, Nose, Throat Exam: normal ENT inspection, pharynx normal, moist mucous membranes Neck Exam: normal inspection, non-tender, supple, full range of motion Respiratory Exam: normal breath sounds, lungs clear, No respiratory distress Cardiovascular Exam: regular rate/rhythm, normal heart sounds Gastrointestinal/Abdomen Exam: soft, No tenderness, No mass Pelvic Exam: deferred Rectal Exam: deferred Back Exam: normal inspection, normal range of motion, No CVA tenderness, No vertebral tenderness Extremity Exam: normal inspection, normal range of motion Skin Exam: normal color, warm, dry, pale Final Diagnosis/Problem List - Final Discharge Diagnosis/Problem (1) Hypercalcemia Current Visit: Yes Status: Acute Code(s): E83.52 - HYPERCALCEMIA (2) Vitamin D deficiency Current Visit: Yes Status: Acute Code(s): E55.9 - VITAMIN D DEFICIENCY, UNSPECIFIED (3) Obesity (BMI 30.0-34.9) Current Visit: Yes Status: Chronic Code(s): E66.811 - OBESITY, CLASS 1 (4) Pulmonary fibrosis Current Visit: Yes Status: Chronic Code(s): J84.10 - PULMONARY FIBROSIS, UNSPECIFIED (5) HTN (hypertension) Current Visit: Yes Status: Chronic Code(s): I10 - ESSENTIAL (PRIMARY) HYPERTENSION (6) CHF (congestive heart failure) Current Visit: No Status: Chronic Code(s): I50.9 - HEART FAILURE, UNSPECIFIED (7) Chiari malformation type II Current Visit: No Status: Chronic Code(s): Q07.01 - ARNOLD-CHIARI SYNDROME WITH SPINA BIFIDA (8) Hx of stroke without residual deficits Current Visit: No Status: Chronic (9) Acute kidney injury Current Visit: No Status: Resolved Assessment & Plan: (1) Hypercalcemia Current Visit: Yes Status: Acute Assessment & Plan: - CA+ 12.9 today- trend - CBC, CMP reviewed - Hold spirolactone- f/u with cardiology OP to discuss med as may be causing hypercalcemia - Lasix 20 BID IV - IVF - Tele - PTH- pending - TSH- WNL - Vitamin D low - Chest XR : Impression: Nonacute chest with chronic bony findings. - CT abd/pelvis: 1. New scattered pulmonary fibrosis/scarring. 2. Again chronic findings including mitral valve calcifications, colonic diverticulosis, nonobstructing left renal microcalculi, bilateral renal cysts, arteriosclerotic disease, chronic bony findings, and old granulomatous disease. 3. Remaining CT abdomen/pelvis with and without contrast exam continues to be negative. 01/23 - Ca+ 12.2 - Continue Lasix, if kidney function worsens consider IVF alone 01/24 - Ca+ 12.6 - Stop Lasix, start IVF - PTH came bcak today and elevated at 90 - F/U with endocrinology - Start calcitonin Code(s): E83.52 - HYPERCALCEMIA (2) Vitamin D deficiency Current Visit: Yes Status: Acute Assessment & Plan: - Vitamin D <12.8 - Education provided on increasing naturally with foods and sun - F/U with PCP as to when you can start replacement for this Code(s): E55.9 - VITAMIN D DEFICIENCY, UNSPECIFIED (3) Obesity (BMI 30.0-34.9) Current Visit: Yes Status: Chronic Assessment & Plan: - Advised diet and exercise control Code(s): E66.811 - OBESITY, CLASS 1 (4) Pulmonary fibrosis Current Visit: Yes Status: Chronic Assessment & Plan: - As seen on CXR - OP Pulm f/u - RA 93% - CT chest reviewed Code(s): J84.10 - PULMONARY FIBROSIS, UNSPECIFIED (5) HTN (hypertension) Current Visit: Yes Status: Chronic Assessment & Plan: - Cont home meds except spirolactone - BP stable Code(s): I10 - ESSENTIAL (PRIMARY) HYPERTENSION (6) CHF (congestive heart failure) Current Visit: No Status: Chronic Assessment & Plan: - Not in acute exacerbation - BNP, CXR reviewed Code(s): I50.9 - HEART FAILURE, UNSPECIFIED (7) Chiari malformation type II Current Visit: No Status: Chronic Assessment & Plan: - Chronic Code(s): Q07.01 - ARNOLD-CHIARI SYNDROME WITH SPINA BIFIDA (8) Hx of stroke without residual deficits Current Visit: No Status: Chronic Assessment & Plan: - Continue Eliquis (9) Acute kidney injury Current Visit: No Status: Resolved Assessment & Plan: - Creat 1.08- trend, BL normal 01/24 - Creat 1.11- up - stop Lasix - IVF started Code(s): N17.9 - ACUTE KIDNEY FAILURE, UNSPECIFIED (10) Elevated parathyroid hormone Current Visit: Yes Status: Acute Assessment & Plan: - PTH- 90 - Will need to f/u with PCP for referral to endocrinology OP D/C plan of care time: > 40 minutes Code(s): R79.89 - OTHER SPECIFIED ABNORMAL FINDINGS OF BLOOD CHEMISTRY - Discharge Discharge Date: 01/24/25 Disposition: Home, Self-Care Condition: Stable Prescriptions: Continue Verapamil HCl [Verapamil ER Pm] 240 mg PO DAILY PANTOPRAZOLE 40 mg Tablet [Protonix 40MG Tablet] 40 mg PO DAILY Sertraline HCl 50 mg [Zoloft 50 mg Tablet] 100 mg PO DAILY Cyanocobalamin (Vitamin B-12) [Vitamin B-12] 5,000 mg PO DAILY Losartan Potassium 100 mg PO DAILY Isosorbide Mononitrate 60 mg [Imdur 60MG] 60 mg PO DAILY Apixaban [Eliquis] 5 mg PO BID Nitroglycerin 1 tablet PO Q5MIN PRN MR X 3 PRN PRN Reason: Chest Pain Acetaminophen [Tylenol Arthritis] 2 tab PO DAILY Discontinued Spironolactone 25 mg [Aldactone 25 MG] 25 mg PO DAILY Additional Instructions: Follow up with Dr. Singleton to make referral appointment with endocrinology as it cannot be made today since you do not know the name of the provider that you want to see. You could discuss that with him at that time and he can make an referral. Stop taking spironolactone and discuss with your director of epidemiology as this may be causing an elevated calcium level or contributing to it along with your elevated parathyroid hormone. Please follow-up with Dr. Singleton this week. Follow up with: REECE SINGLETON [Primary Care Provider, [facility]] - 01/26/25 9:00 am FLYNN PEMBERTON MD [CONSULTING PHYSICIAN, CARDIOLOGY] - 02/24/25 10:45 am Referral Note: Office will reach out to schedule an additional appt for you prior to your 3 month f/u.
[2025-01-24 13:02] VITALS: BP 157/85; PULSE 99; RESP 16; TEMP 98.5; O2SAT 98
== END 2025-01-24 13:25 | disposition home or self-care (01) | DRG 641 ==
LOC: ED 17:36 → MED SURG 19:41 → OBSVTOIN 01-22 08:00
PROVIDERS: ADMIT Internal Medicine; ATTEND Internal Medicine
DX: E83.52 Hypercalcemia (principal); N17.9 Acute kidney failure, unspecified; I12.9 Hypertensive chronic kidney disease with stage 1 through stage 4 chronic kidney disease, or unspecified chronic kidney disease; N18.9 Chronic kidney disease, unspecified; I50.9 Heart failure, unspecified; E66.811 Obesity, class 1; J84.10 Pulmonary fibrosis, unspecified; Q07.01 Arnold-Chiari syndrome with spina bifida; R79.89 Other specified abnormal findings of blood chemistry; Z79.899 Other long term (current) drug therapy; Z86.73 Personal history of transient ischemic attack (TIA), and cerebral infarction without residual deficits; Z79.01 Long term (current) use of anticoagulants
CPT/HCPCS: 36415; 71045; 71270; 74178; 80053; 82306; 82310; 83735; 83880; 83970; 84443; 84484; 85025; 85027; 93005; 93268; 99285; G0378